=== PATIENT | female | born 1965 | race Caucasian/White ===

== ENCOUNTER 2016-10-26 04:38 | Emergency (ER) | payer MEDICAID ==
[2016-10-08 14:08] VITALS: BMI 39.9
[~2016-10-26 04:38] MED LIST: BUSPAR 15 MG TA15 MG PO; COLACE100 MG PO; ESTRACE1 MG PO; HYDROCODONE-APA1 TAB PO; LEVAQUIN750 MG PO; NORVASC5 MG PO; OMEPRAZOLE20 M1 PO; PROAIR HFA8.5 GM INH; RYTHMOL225 MG PO; SPIRIVA RESPIMAT4 G1 INH; TESSALON PERLE100 MG PO; THEOCHRON300 MG PO; TOPROL XL25 MG PO; TYLENOL W/CODEI1 TAB PO; XARELTO20 MG PO; ZESTRIL40 MG PO
== END 2016-10-26 05:50 | disposition home or self-care (01) ==
LOC: D.ER 04:38
DX: J44.1 Chronic obstructive pulmonary disease with (acute) exacerbation (principal); J45.909 Unspecified asthma, uncomplicated; F17.200 Nicotine dependence, unspecified, uncomplicated

== ENCOUNTER 2016-10-30 05:24 | Emergency (ER) | payer MEDICAID ==
[2016-10-08 14:08] VITALS: BMI 39.9
[2016-10-30 06:31] LABS: BASOPHILS 0.4 % (0.0-2.0); EOSINOPHILS 3.2 % (0-7); HEMATOCRIT 40.9 % (36.0-48.0); HEMOGLOBIN 13.5 g/dL (12-16); IMMATURE GRANULOCYTES 0.3 % (0-5); LYMPHOCYTES 35.8 % (15-50); MCH 29.5 pg (26.0-34.0); MCV 89.3 fL (80.0-100.0); MEAN PLATELET VOLUME 10.8 fL (7.4-10.4); MONOCYTES 7.6 % (2-11); NEUTROPHILS 52.7 % (40-80); PLATELET COUNT 219 10x3/uL (130-400); RBC 4.58 10x6/uL (4.00-5.40); RDW 13.5 % (11.5-14.5); WBC 7.4 10x3/uL (4.8-10.8)
[2016-10-30 07:06] LABS: ALBUMIN 2.9 g/dL (3.4-5.0); ALKALINE PHOSPHATASE 91 U/L (46-116); ALT (SGPT) 23 U/L (10-68); BILIRUBIN - TOTAL 0.28 mg/dL (0.2-1.3); CALC OSMOLALITY 279 mosm/kg (275-300); CALCIUM 9.4 mg/dL (8.5-10.1); CARBON DIOXIDE 30.4 mmol/L (21.0-32.0); CHLORIDE - SERUM 104 mmol/L (98-107); CREATININE - SERUM 0.9 mg/dL (0.6-1.3); POTASSIUM - SERUM 3.8 mmol/L (3.5-5.1); PROTEIN - SERUM 6.6 g/dL (6.4-8.2); SODIUM 140 mmol/L (136-145); UREA NITROGEN 15 mg/dL (7-18); eGFR NON AFRICAN AMERICAN 70 mL/min (90-120)
[2016-10-30 07:14] LABS: GLUCOSE 101 mg/dL (74-106)
[2016-10-30 07:27] LABS: AMYLASE - SERUM 36 U/L (25-115); LIPASE 127 U/L (73-393)
[2016-10-30 07:29] LABS: PRO BNP 1 pg/mL (0-125); TROPONIN-I < 0.017 ng/mL (0.000-0.060)
== END 2016-10-30 09:28 | disposition home or self-care (01) ==
LOC: D.ER 05:24
PROVIDERS: Family Medicine
DX: R06.00 Dyspnea, unspecified (principal); J44.1 Chronic obstructive pulmonary disease with (acute) exacerbation; M54.5 Low back pain; J45.909 Unspecified asthma, uncomplicated

== ENCOUNTER 2016-11-08 06:32 | Emergency (ER) | payer MEDICAID ==
[2016-10-08 14:08] VITALS: BMI 39.9
[2016-11-08 07:08] LABS: BASOPHILS 0.5 % (0.0-2.0); EOSINOPHILS 1.8 % (0-7); HEMATOCRIT 45.7 % (36.0-48.0); HEMOGLOBIN 15.4 g/dL (12-16); IMMATURE GRANULOCYTES 0.3 % (0-5); LYMPHOCYTES 38.3 % (15-50); MCH 30.1 pg (26.0-34.0); MCHC 33.7 g/dL (31.0-37.0); MCV 89.4 fL (80.0-100.0); MEAN PLATELET VOLUME 11.1 fL (7.4-10.4); MONOCYTES 8.5 % (2-11); NEUTROPHILS 50.6 % (40-80); PLATELET COUNT 205 10x3/uL (130-400); RBC 5.11 10x6/uL (4.00-5.40)
[2016-11-08 07:17] LABS: ALBUMIN 3.2 g/dL (3.4-5.0); ALKALINE PHOSPHATASE 117 U/L (46-116); ALT (SGPT) 22 U/L (10-68); BILIRUBIN - TOTAL 0.34 mg/dL (0.2-1.3); CALC OSMOLALITY 274 mosm/kg (275-300); CALCIUM 9.1 mg/dL (8.5-10.1); CARBON DIOXIDE 28.6 mmol/L (21.0-32.0); CHLORIDE - SERUM 101 mmol/L (98-107); CREATININE - SERUM 0.9 mg/dL (0.6-1.3); GLUCOSE 111 mg/dL (74-106); POTASSIUM - SERUM 4.1 mmol/L (3.5-5.1); PROTEIN - SERUM 7.3 g/dL (6.4-8.2); SODIUM 136 mmol/L (136-145); UREA NITROGEN 19 mg/dL (7-18); eGFR NON AFRICAN AMERICAN 70 mL/min (90-120)
[2016-11-08 07:29] LABS: CKMB 1.6 U/L (0.0-3.6); CREATINE KINASE 129 UL (21-215)
[2016-11-08 07:31] LABS: TROPONIN-I < 0.017 ng/mL (0.000-0.060)
== END 2016-11-08 08:35 | disposition home or self-care (01) ==
LOC: D.ER 06:32
PROVIDERS: Family Medicine
DX: R07.81 Pleurodynia (principal); F17.200 Nicotine dependence, unspecified, uncomplicated; M54.5 Low back pain; J45.909 Unspecified asthma, uncomplicated; J44.9 Chronic obstructive pulmonary disease, unspecified; I48.91 Unspecified atrial fibrillation

== ENCOUNTER 2016-11-14 04:24 | Emergency (ER) | payer MEDICAID ==
[2016-10-08 14:08] VITALS: BMI 39.9
== END 2016-11-14 05:28 | disposition home or self-care (01) ==
LOC: D.ER 04:24
DX: J20.9 Acute bronchitis, unspecified (principal); J44.1 Chronic obstructive pulmonary disease with (acute) exacerbation; J45.909 Unspecified asthma, uncomplicated; F17.200 Nicotine dependence, unspecified, uncomplicated

== ENCOUNTER 2016-11-22 05:23 | Emergency (ER) | payer MEDICAID ==
[2016-10-08 14:08] VITALS: BMI 39.9
== END 2016-11-22 06:54 | disposition home or self-care (01) ==
LOC: D.ER 05:23
DX: J44.1 Chronic obstructive pulmonary disease with (acute) exacerbation (principal); F17.200 Nicotine dependence, unspecified, uncomplicated; J45.909 Unspecified asthma, uncomplicated; R00.1 Bradycardia, unspecified

== ENCOUNTER 2016-11-22 17:26 | Emergency (ER) | payer MEDICAID ==
[2016-10-08 14:08] VITALS: BMI 39.9
== END 2016-11-22 19:18 | disposition home or self-care (01) ==
LOC: D.ER 17:26
DX: M25.551 Pain in right hip (principal); J44.9 Chronic obstructive pulmonary disease, unspecified; F17.200 Nicotine dependence, unspecified, uncomplicated

== ENCOUNTER 2016-11-27 16:46 | Emergency (ER) | payer MEDICAID ==
[2016-10-08 14:08] VITALS: BMI 39.9
[2016-11-27 17:14] LABS: BASOPHILS 0.4 % (0.0-2.0); EOSINOPHILS 2.4 % (0-7); HEMATOCRIT 42.3 % (36.0-48.0); HEMOGLOBIN 14.5 g/dL (12-16); IMMATURE GRANULOCYTES 0.5 % (0-5); LYMPHOCYTES 39.8 % (15-50); MCH 30.6 pg (26.0-34.0); MCHC 34.3 g/dL (31.0-37.0); MCV 89.2 fL (80.0-100.0); MEAN PLATELET VOLUME 10.3 fL (7.4-10.4); NEUTROPHILS 49.9 % (40-80); PLATELET COUNT 234 10x3/uL (130-400); RBC 4.74 10x6/uL (4.00-5.40); RDW 13.4 % (11.5-14.5); WBC 10.2 10x3/uL (4.8-10.8)
[2016-11-27 17:28] LABS: ALBUMIN 3.2 g/dL (3.4-5.0); ANION GAP 11.5 mmol/L (8-16); BILIRUBIN - TOTAL 0.25 mg/dL (0.2-1.3); CALCIUM 8.8 mg/dL (8.5-10.1); CARBON DIOXIDE 29.2 mmol/L (21.0-32.0); POTASSIUM - SERUM 3.7 mmol/L (3.5-5.1); PROTEIN - SERUM 7.1 g/dL (6.4-8.2)
[2016-11-27 18:12] LABS: APPEARANCE SLT CLOUDY (CLEAR); BACTERIA MODERATE /hpf (NONE SEEN); BILIRUBIN NEGATIVE (NEGATIVE); COLOR YELLOW (YELLOW); GLUCOSE NEGATIVE (NEGATIVE); KETONE NEGATIVE (NEGATIVE); LEUKOCYTE ESTERASE TRACE (NEGATIVE); MUCUS <1+ /lpf (NONE SEEN); NITRITE NEGATIVE (NEGATIVE); PROTEIN NEGATIVE (NEGATIVE); RED CELLS - URINE OCC /hpf (0-5); UROBILINOGEN NORMAL (NORMAL); WHITE CELLS - URINE 0-5 /hpf (0-5)
== END 2016-11-27 18:31 | disposition home or self-care (01) ==
LOC: D.ER 16:46
PROVIDERS: Emergency Medicine; Physician Assistant
DX: R10.31 Right lower quadrant pain (principal); J44.9 Chronic obstructive pulmonary disease, unspecified; F17.200 Nicotine dependence, unspecified, uncomplicated

== ENCOUNTER 2016-12-02 18:59 | Emergency (ER) | payer MEDICAID ==
[2016-10-08 14:08] VITALS: BMI 39.9
[2016-12-02 21:14] LABS: BASOPHILS 0.2 % (0.0-2.0); EOSINOPHILS 1.8 % (0-7); HEMOGLOBIN 14.4 g/dL (12-16); IMMATURE GRANULOCYTES 0.4 % (0-5); LYMPHOCYTES 35.1 % (15-50); MCH 30.4 pg (26.0-34.0); MCHC 34.3 g/dL (31.0-37.0); MCV 88.8 fL (80.0-100.0); MEAN PLATELET VOLUME 10.7 fL (7.4-10.4); MONOCYTES 7.1 % (2-11); NEUTROPHILS 55.4 % (40-80); PLATELET COUNT 215 10x3/uL (130-400); RBC 4.73 10x6/uL (4.00-5.40); RDW 13.7 % (11.5-14.5); WBC 10.6 10x3/uL (4.8-10.8)
[2016-12-02 21:27] LABS: ALBUMIN 3.4 g/dL (3.4-5.0); ANION GAP 11.9 mmol/L (8-16); BILIRUBIN - TOTAL 0.37 mg/dL (0.2-1.3); CARBON DIOXIDE 28.2 mmol/L (21.0-32.0); CREATININE - SERUM 1.4 mg/dL (0.6-1.3); POTASSIUM - SERUM 3.1 mmol/L (3.5-5.1); PROTEIN - SERUM 7.4 g/dL (6.4-8.2)
== END 2016-12-02 21:08 | disposition home or self-care (01) ==
LOC: D.ER 18:59
PROVIDERS: Physician Assistant
DX: J44.1 Chronic obstructive pulmonary disease with (acute) exacerbation (principal); S80.11XA Contusion of right lower leg, initial encounter; W01.0XXA Fall on same level from slipping, tripping and stumbling without subsequent striking against object, initial encounter; Y93.89 Activity, other specified; Y92.019 Unspecified place in single-family (private) house as the place of occurrence of the external cause; F17.200 Nicotine dependence, unspecified, uncomplicated

== ENCOUNTER 2016-12-16 05:17 | Emergency (ER) | payer MEDICAID ==
[2016-10-08 14:08] VITALS: BMI 39.9
== END 2016-12-16 05:50 | disposition home or self-care (01) ==
LOC: D.ER 05:17
DX: S39.012A Strain of muscle, fascia and tendon of lower back, initial encounter (principal); W01.0XXA Fall on same level from slipping, tripping and stumbling without subsequent striking against object, initial encounter; Y93.89 Activity, other specified; Y92.019 Unspecified place in single-family (private) house as the place of occurrence of the external cause; J44.9 Chronic obstructive pulmonary disease, unspecified

== ENCOUNTER 2016-12-22 15:36 | Emergency (ER) | payer MEDICAID ==
[2016-10-08 14:08] VITALS: BMI 39.9
== END 2016-12-22 20:21 | disposition home or self-care (01) ==
LOC: D.ER 15:36
DX: J44.1 Chronic obstructive pulmonary disease with (acute) exacerbation (principal); F17.200 Nicotine dependence, unspecified, uncomplicated

== ENCOUNTER 2016-12-28 10:52 | Emergency (ER) | payer MEDICAID ==
[2016-10-08 14:08] VITALS: BMI 39.9
== END 2016-12-28 11:56 | disposition home or self-care (01) ==
LOC: D.ER 10:52
DX: S39.012A Strain of muscle, fascia and tendon of lower back, initial encounter (principal); X58.XXXA Exposure to other specified factors, initial encounter; Y93.E5 Activity, floor mopping and cleaning; Y92.019 Unspecified place in single-family (private) house as the place of occurrence of the external cause; M54.5 Low back pain; J44.9 Chronic obstructive pulmonary disease, unspecified; F17.200 Nicotine dependence, unspecified, uncomplicated

== ENCOUNTER 2016-12-29 09:54 | Emergency (ER) | payer MEDICAID ==
[2016-10-08 14:08] VITALS: BMI 39.9
== END 2016-12-29 09:55 | disposition left against medical advice (07) ==
LOC: D.ER 09:54
DX: R22.9 Localized swelling, mass and lump, unspecified (principal)

== ENCOUNTER 2017-01-01 17:44 | Emergency (ER) | payer MEDICAID ==
[2016-10-08 14:08] VITALS: BMI 39.9
== END 2017-01-01 22:19 | disposition home or self-care (01) ==
LOC: D.ER 17:44
DX: J44.1 Chronic obstructive pulmonary disease with (acute) exacerbation (principal); F17.200 Nicotine dependence, unspecified, uncomplicated

== ENCOUNTER 2017-01-13 17:22 | Emergency (ER) | payer MEDICAID ==
[2016-10-08 14:08] VITALS: BMI 39.9
[2017-01-13 18:29] LABS: BASOPHILS 0.5 % (0.0-2.0); EOSINOPHILS 2.8 % (0-7); HEMATOCRIT 43.8 % (36.0-48.0); HEMOGLOBIN 14.5 g/dL (12-16); IMMATURE GRANULOCYTES 0.2 % (0-5); MCH 30.2 pg (26.0-34.0); MCHC 33.1 g/dL (31.0-37.0); MCV 91.3 fL (80.0-100.0); MEAN PLATELET VOLUME 10.5 fL (7.4-10.4); MONOCYTES 8.9 % (2-11); NEUTROPHILS 46.6 % (40-80); PLATELET COUNT 223 10x3/uL (130-400); RDW 13.7 % (11.5-14.5); WBC 6.3 10x3/uL (4.8-10.8)
[2017-01-13 18:44] LABS: ALBUMIN 3.5 g/dL (3.4-5.0); ALKALINE PHOSPHATASE 112 U/L (46-116); ALT (SGPT) 23 U/L (10-68); BILIRUBIN - TOTAL 0.18 mg/dL (0.2-1.3); CALC OSMOLALITY 278 mosm/kg (275-300); CALCIUM 9.2 mg/dL (8.5-10.1); CARBON DIOXIDE 26.7 mmol/L (21.0-32.0); CHLORIDE - SERUM 105 mmol/L (98-107); GLUCOSE 89 mg/dL (74-106); PROTEIN - SERUM 7.5 g/dL (6.4-8.2); SODIUM 140 mmol/L (136-145); UREA NITROGEN 15 mg/dL (7-18); eGFR NON AFRICAN AMERICAN 62 mL/min (90-120)
[2017-01-13 18:55] LABS: CKMB 2.9 U/L (0.0-3.6); CREATINE KINASE 313 UL (21-215); TROPONIN-I < 0.017 ng/mL (0.000-0.060)
== END 2017-01-13 21:45 | disposition home or self-care (01) ==
LOC: D.ER 17:22
PROVIDERS: Emergency Medicine
DX: J44.9 Chronic obstructive pulmonary disease, unspecified (principal); I10 Essential (primary) hypertension; J20.9 Acute bronchitis, unspecified; H66.93 Otitis media, unspecified, bilateral; J01.90 Acute sinusitis, unspecified

== ENCOUNTER 2017-02-01 19:12 | Emergency (ER) | payer MEDICAID ==
[2016-10-08 14:08] VITALS: BMI 39.9
[2017-02-01 19:59] LABS: BASOPHILS 0.4 % (0-2); EOSINOPHILS 1.4 % (0-7); HEMATOCRIT 42.9 % (36.0-48.0); HEMOGLOBIN 14.8 g/dL (12-16); IMMATURE GRANULOCYTES 0.1 % (0-5); LYMPHOCYTES 34.8 % (15-50); MCH 30.6 pg (26.0-34.0); MCHC 34.5 g/dL (31.0-37.0); MCV 88.8 fL (80.0-100.0); MONOCYTES 8.6 % (2-11); NEUTROPHILS 54.7 % (40-80); PLATELET COUNT 248 10x3/uL (130-400); RBC 4.83 10x6/uL (4.00-5.40); RDW 13.4 % (11.5-14.5)
[2017-02-01 20:16] LABS: ALBUMIN 3.5 g/dL (3.4-5.0); ALKALINE PHOSPHATASE 116 U/L (46-116); ALT (SGPT) 26 U/L (10-68); BILIRUBIN - TOTAL 0.28 mg/dL (0.2-1.3); CALC OSMOLALITY 280 mosm/kg (275-300); CALCIUM 9.7 mg/dL (8.5-10.1); CARBON DIOXIDE 27.6 mmol/L (21.0-32.0); CHLORIDE - SERUM 102 mmol/L (98-107); CREATININE - SERUM 1.1 mg/dL (0.6-1.3); GLUCOSE 107 mg/dL (74-106); POTASSIUM - SERUM 3.2 mmol/L (3.5-5.1); PROTEIN - SERUM 7.7 g/dL (6.4-8.2); SODIUM 140 mmol/L (136-145); UREA NITROGEN 18 mg/dL (7-18); eGFR NON AFRICAN AMERICAN 55 mL/min (90-120)
[2017-02-01 20:17] LABS: AMYLASE - SERUM 38 U/L (25-115); LIPASE 138 U/L (73-393)
[2017-02-01 20:18] LABS: TROPONIN-I < 0.017 ng/mL (0.000-0.060)
== END 2017-02-01 21:46 | disposition home or self-care (01) ==
LOC: D.ER 19:12
PROVIDERS: Emergency Medicine Emergency Medical Services
DX: R06.00 Dyspnea, unspecified (principal); J44.1 Chronic obstructive pulmonary disease with (acute) exacerbation; J20.9 Acute bronchitis, unspecified; I48.91 Unspecified atrial fibrillation; I50.9 Heart failure, unspecified; I10 Essential (primary) hypertension

== ENCOUNTER 2017-03-09 06:23 | Emergency (ER) | payer MEDICAID ==
[2016-10-08 14:08] VITALS: BMI 39.9
== END 2017-03-09 07:55 | disposition home or self-care (01) ==
LOC: D.ER 06:23
DX: R06.00 Dyspnea, unspecified (principal); J44.1 Chronic obstructive pulmonary disease with (acute) exacerbation; I50.9 Heart failure, unspecified; I10 Essential (primary) hypertension; F17.200 Nicotine dependence, unspecified, uncomplicated

== ENCOUNTER 2017-03-19 13:19 | Emergency (ER) | payer MEDICAID ==
[2016-10-08 14:08] VITALS: BMI 39.9
[2017-03-19 14:29] LABS: BASOPHILS 0.6 % (0-2); EOSINOPHILS 3.4 % (0-7); HEMATOCRIT 46.2 % (36.0-48.0); HEMOGLOBIN 15.3 g/dL (12-16); IMMATURE GRANULOCYTES 0.1 % (0-5); LYMPHOCYTES 39.9 % (15-50); MCH 30.7 pg (26.0-34.0); MCHC 33.1 g/dL (31.0-37.0); MCV 92.8 fL (80.0-100.0); MEAN PLATELET VOLUME 10.5 fL (7.4-10.4); MONOCYTES 7.3 % (2-11); NEUTROPHILS 48.7 % (40-80); PLATELET COUNT 244 10x3/uL (130-400); RBC 4.98 10x6/uL (4.00-5.40); RDW 13.4 % (11.5-14.5); WBC 7.7 10x3/uL (4.8-10.8)
[2017-03-19 14:44] LABS: ANION GAP 14.1 mmol/L (8-16); CALCIUM 9.1 mg/dL (8.5-10.1); POTASSIUM - SERUM 4.1 mmol/L (3.5-5.1)
== END 2017-03-19 15:13 | disposition home or self-care (01) ==
LOC: D.ER 13:19
PROVIDERS: Family Medicine
DX: R06.02 Shortness of breath (principal); J44.1 Chronic obstructive pulmonary disease with (acute) exacerbation

== ENCOUNTER 2017-04-18 19:55 | Emergency (ER) | payer MEDICAID ==
[2016-10-08 14:08] VITALS: BMI 39.9
[2017-04-18 20:40] LABS: BASOPHILS 0.6 % (0-2); EOSINOPHILS 1.6 % (0-7); HEMATOCRIT 44.4 % (36.0-48.0); HEMOGLOBIN 15.2 g/dL (12-16); IMMATURE GRANULOCYTES 0.1 % (0-5); LYMPHOCYTES 44.1 % (15-50); MCH 30.8 pg (26.0-34.0); MCHC 34.2 g/dL (31.0-37.0); MCV 90.1 fL (80.0-100.0); MEAN PLATELET VOLUME 10.3 fL (7.4-10.4); MONOCYTES 8.6 % (2-11); PLATELET COUNT 219 10x3/uL (130-400); RBC 4.93 10x6/uL (4.00-5.40); RDW 13.4 % (11.5-14.5); WBC 6.9 10x3/uL (4.8-10.8)
== END 2017-04-18 21:19 | disposition home or self-care (01) ==
LOC: D.ER 19:55
PROVIDERS: Emergency Medicine
DX: J44.1 Chronic obstructive pulmonary disease with (acute) exacerbation (principal); I50.9 Heart failure, unspecified; I10 Essential (primary) hypertension; F17.200 Nicotine dependence, unspecified, uncomplicated

== ENCOUNTER 2017-05-22 08:32 | Emergency (ER) | payer MEDICAID ==
[2016-10-08 14:08] VITALS: BMI 39.9
== END 2017-05-22 10:06 | disposition home or self-care (01) ==
LOC: D.ER 08:32
DX: R06.00 Dyspnea, unspecified (principal); J44.1 Chronic obstructive pulmonary disease with (acute) exacerbation; I50.9 Heart failure, unspecified; I10 Essential (primary) hypertension; F17.200 Nicotine dependence, unspecified, uncomplicated

== ENCOUNTER 2017-05-27 19:23 | Emergency (ER) | payer MEDICAID ==
[2016-10-08 14:08] VITALS: BMI 39.9
== END 2017-05-27 21:23 | disposition home or self-care (01) ==
LOC: D.ER 19:23
DX: S39.012A Strain of muscle, fascia and tendon of lower back, initial encounter (principal); W19.XXXA Unspecified fall, initial encounter; Y93.89 Activity, other specified; Y92.89 Other specified places as the place of occurrence of the external cause; J44.1 Chronic obstructive pulmonary disease with (acute) exacerbation; I50.9 Heart failure, unspecified; I10 Essential (primary) hypertension; F17.200 Nicotine dependence, unspecified, uncomplicated

== ENCOUNTER 2017-06-05 22:38 | Emergency (ER) | payer MEDICAID ==
[2016-10-08 14:08] VITALS: BMI 39.9
== END 2017-06-06 00:15 | disposition home or self-care (01) ==
LOC: D.ER 22:38
DX: S39.012A Strain of muscle, fascia and tendon of lower back, initial encounter (principal); Y04.2XXA Assault by strike against or bumped into by another person, initial encounter; Y93.89 Activity, other specified; Y92.019 Unspecified place in single-family (private) house as the place of occurrence of the external cause; M62.830 Muscle spasm of back; I50.9 Heart failure, unspecified; J44.9 Chronic obstructive pulmonary disease, unspecified; I10 Essential (primary) hypertension; F17.200 Nicotine dependence, unspecified, uncomplicated

== ENCOUNTER 2017-06-17 12:39 | Emergency (ER) | payer MEDICAID ==
[2016-10-08 14:08] VITALS: BMI 39.9
[2017-06-17 16:27] LABS: APPEARANCE HAZY (CLEAR); BILIRUBIN NEGATIVE (NEGATIVE); COLOR YELLOW (YELLOW); GLUCOSE NEGATIVE (NEGATIVE); KETONE NEGATIVE (NEGATIVE); LEUKOCYTE ESTERASE 2+ (NEGATIVE); NITRITE NEGATIVE (NEGATIVE); PROTEIN NEGATIVE (NEGATIVE); SPECIFIC GRAVITY 1.015 (1.005-1.020); UROBILINOGEN NORMAL (NORMAL)
[2017-06-17 16:28] LABS: BACTERIA MODERATE /hpf (NONE SEEN); RED CELLS - URINE 0-5 /hpf (0-5)
[2017-06-17 16:29] LABS: MUCUS <1+ /lpf (NONE SEEN)
== END 2017-06-17 18:00 | disposition home or self-care (01) ==
LOC: D.ER 12:39
PROVIDERS: Physician Assistant Medical
DX: N39.0 Urinary tract infection, site not specified (principal); A59.9 Trichomoniasis, unspecified; M54.5 Low back pain; J45.901 Unspecified asthma with (acute) exacerbation; F17.200 Nicotine dependence, unspecified, uncomplicated

== ENCOUNTER 2017-06-24 15:02 | Emergency (ER) | payer MEDICAID ==
[2016-10-08 14:08] VITALS: BMI 39.9
== END 2017-06-24 19:10 | disposition home or self-care (01) ==
LOC: D.ER 15:02
DX: M79.604 Pain in right leg (principal); W19.XXXA Unspecified fall, initial encounter; Y93.89 Activity, other specified; Y92.89 Other specified places as the place of occurrence of the external cause; J45.909 Unspecified asthma, uncomplicated; J44.9 Chronic obstructive pulmonary disease, unspecified; I10 Essential (primary) hypertension; F17.200 Nicotine dependence, unspecified, uncomplicated

== ENCOUNTER 2017-07-02 19:39 | Emergency (ER) | payer MEDICAID ==
[2016-10-08 14:08] VITALS: BMI 39.9
== END 2017-07-02 21:02 | disposition home or self-care (01) ==
LOC: D.ER 19:39
DX: T63.461A Toxic effect of venom of wasps, accidental (unintentional), initial encounter (principal); Y92.029 Unspecified place in mobile home as the place of occurrence of the external cause; M79.1 Myalgia; M25.50 Pain in unspecified joint; J44.9 Chronic obstructive pulmonary disease, unspecified; F17.200 Nicotine dependence, unspecified, uncomplicated

== ENCOUNTER 2017-07-06 19:03 | Emergency (ER) | payer MEDICAID ==
[2016-10-08 14:08] VITALS: BMI 39.9
[2017-07-06 20:09] LABS: BASOPHILS 0.4 % (0-2); EOSINOPHILS 2.3 % (0-7); HEMATOCRIT 41.3 % (36.0-48.0); IMMATURE GRANULOCYTES 0.5 % (0-5); MCH 30.8 pg (26.0-34.0); MCHC 33.9 g/dL (31.0-37.0); MCV 90.8 fL (80.0-100.0); MEAN PLATELET VOLUME 10.5 fL (7.4-10.4); MONOCYTES 6.8 % (2-11); PLATELET COUNT 210 10x3/uL (130-400); RBC 4.55 10x6/uL (4.00-5.40); RDW 13.4 % (11.5-14.5); WBC 7.8 10x3/uL (4.8-10.8)
[2017-07-06 20:17] LABS: ALBUMIN 3.1 g/dL (3.4-5.0); ALKALINE PHOSPHATASE 107 U/L (46-116); ALT (SGPT) 20 U/L (10-68); CALC OSMOLALITY 279 mosm/kg (275-300); CALCIUM 8.9 mg/dL (8.5-10.1); CHLORIDE - SERUM 104 mmol/L (98-107); CREATININE - SERUM 0.9 mg/dL (0.6-1.3); GLUCOSE 113 mg/dL (74-106); POTASSIUM - SERUM 3.3 mmol/L (3.5-5.1); PROTEIN - SERUM 6.8 g/dL (6.4-8.2); SODIUM 139 mmol/L (136-145); UREA NITROGEN 15 mg/dL (7-18); eGFR NON AFRICAN AMERICAN 70 mL/min (90-120)
[2017-07-06 20:21] LABS: APPEARANCE CLEAR (CLEAR); BILIRUBIN NEGATIVE (NEGATIVE); COLOR YELLOW (YELLOW); GLUCOSE NEGATIVE (NEGATIVE); KETONE NEGATIVE (NEGATIVE); LEUKOCYTE ESTERASE NEGATIVE (NEGATIVE); NITRITE NEGATIVE (NEGATIVE); PROTEIN NEGATIVE (NEGATIVE); SPECIFIC GRAVITY 1.015 (1.005-1.020); UROBILINOGEN NORMAL (NORMAL)
[2017-07-06 20:29] LABS: CKMB 0.7 U/L (0.0-3.6); CREATINE KINASE 70 UL (21-215); PRO BNP 161 pg/mL (0-125); TROPONIN-I < 0.017 ng/mL (0.000-0.060)
== END 2017-07-06 22:57 | disposition home or self-care (01) ==
LOC: D.ER 19:03
PROVIDERS: Family Medicine
DX: M54.9 Dorsalgia, unspecified (principal); R90.89 Other abnormal findings on diagnostic imaging of central nervous system; W13.3XXA Fall through floor, initial encounter; Y93.89 Activity, other specified; Y92.89 Other specified places as the place of occurrence of the external cause; F17.200 Nicotine dependence, unspecified, uncomplicated; J44.9 Chronic obstructive pulmonary disease, unspecified; I10 Essential (primary) hypertension

== ENCOUNTER 2017-07-20 02:25 | Emergency (ER) | payer MEDICAID ==
[2016-10-08 14:08] VITALS: BMI 39.9
== END 2017-07-20 03:46 | disposition home or self-care (01) ==
LOC: D.ER 02:25
DX: J44.1 Chronic obstructive pulmonary disease with (acute) exacerbation (principal); J20.9 Acute bronchitis, unspecified; I10 Essential (primary) hypertension; F17.200 Nicotine dependence, unspecified, uncomplicated

== ENCOUNTER 2017-07-30 09:25 | Emergency (ER) | payer MEDICAID ==
[2016-10-08 14:08] VITALS: BMI 39.9
== END 2017-07-30 10:30 | disposition home or self-care (01) ==
LOC: D.ER 09:25
DX: J20.9 Acute bronchitis, unspecified (principal); J44.1 Chronic obstructive pulmonary disease with (acute) exacerbation; M54.9 Dorsalgia, unspecified; I10 Essential (primary) hypertension; F17.200 Nicotine dependence, unspecified, uncomplicated

== ENCOUNTER 2017-07-31 01:04 | Emergency (ER) | payer MEDICAID ==
[2016-10-08 14:08] VITALS: BMI 39.9
== END 2017-07-31 02:25 | disposition home or self-care (01) ==
LOC: D.ER 01:04
DX: M54.2 Cervicalgia (principal); J44.9 Chronic obstructive pulmonary disease, unspecified; I10 Essential (primary) hypertension; F17.200 Nicotine dependence, unspecified, uncomplicated

== ENCOUNTER 2017-08-13 12:52 | Emergency (ER) | payer MEDICAID ==
[2016-10-08 14:08] VITALS: BMI 39.9
== END 2017-08-13 15:20 | disposition home or self-care (01) ==
LOC: D.ER 12:52
DX: M54.5 Low back pain (principal); M25.562 Pain in left knee; J44.9 Chronic obstructive pulmonary disease, unspecified; I10 Essential (primary) hypertension; F17.200 Nicotine dependence, unspecified, uncomplicated

== ENCOUNTER 2017-08-19 09:19 | Observation (INO) | payer MEDICAID ==
[~2017-08-19] VITALS: Ht 165.1 cm; Wt 93.4 kg
[2017-08-19 10:08] LABS: HEMATOCRIT 45.8 % (36.0-48.0); HEMOGLOBIN 15.4 g/dL (12-16); MCH 31.1 pg (26.0-34.0); MCHC 33.6 g/dL (31.0-37.0); MCV 92.5 fL (80.0-100.0); MEAN PLATELET VOLUME 10.3 fL (7.4-10.4); PLATELET COUNT 227 10x3/uL (130-400); RBC 4.95 10x6/uL (4.00-5.40); RDW 13.8 % (11.5-14.5); WBC 7.7 10x3/uL (4.8-10.8)
[2017-08-19 10:26] LABS: ALBUMIN 3.4 g/dL (3.4-5.0); ALKALINE PHOSPHATASE 87 U/L (46-116); ALT (SGPT) 28 U/L (10-68); CALC OSMOLALITY 275 mosm/kg (275-300); CALCIUM 9.4 mg/dL (8.5-10.1); CARBON DIOXIDE 28.6 mmol/L (21.0-32.0); CHLORIDE - SERUM 102 mmol/L (98-107); CREATININE - SERUM 0.8 mg/dL (0.6-1.3); GLUCOSE 95 mg/dL (74-106); POTASSIUM - SERUM 4.1 mmol/L (3.5-5.1); PROTEIN - SERUM 7.4 g/dL (6.4-8.2); SODIUM 138 mmol/L (136-145); UREA NITROGEN 13 mg/dL (7-18); eGFR NON AFRICAN AMERICAN 80 mL/min (90-120)
[2017-08-19 10:34] LABS: PRO BNP 169 pg/mL (0-125)
[2017-08-19 10:51] LABS: EOSINOPHILS 2 % (0-7); LYMPHOCYTES 55 % (15-50); MONOCYTES 6 % (2-11); NEUTROPHILS 35 % (40-80); PLATELET ESTIMATE NORMAL
--- NOTE | 2017-08-19 15:04 | NUR ---
PT ARRIVED TO ROOM VIA WHEELCHAIR. SOON PT ARRIVED IN THE ROOM SHE STATED THAT SHE CAN NOT STAY IN THE ROOM AND NEEDS TO GO FOR A WALK AND GET SOME HOT [place]. I OFFERED TO GET HER SOME HOT [place] ON THE FLOOR AND ASKED HER TO PLEASE STAY ON THE FLOOR. PT LEFT ROOM. ER CALLED AND STATED THAT PT JUST LEFT THE HOSPITAL AND WENT OUTSIDE. AWAITING FOR PT TO RETURN TO CHECK PT IN.
--- NOTE | 2017-08-19 15:30 | NUR ---
PT BACK IN ROOM AND NOW ON THE PHONE. WILL ADMIT SOON I CAN.
[2017-08-19 15:45] VITALS: BP 153/76; BMI 34.3
--- NOTE | 2017-08-19 17:27 | NUR ---
PT SITTING ON THE SIDE OF THE BED EATING DINNER. C/O HOW THE DINNER TASTE. STATES THAT SHE WANTS CATFISH, MASHED POTATOES, BUTTER KRAFT WITH CORN BREAD OR GREENS. WILL CALL DIETARY. WILL CONTINEU TO MONITOR
--- NOTE | 2017-08-19 17:47 | NUR ---
PT REFUSES 02. STATES IT MAKES HER BREATHING WORSE. PT LEFT FLOOR WITH MALE FRIEND. ADVISED PT TO NOT SMOKE WHILE RECIEVING THE NICOTINE PATCH. WILL CONTINUE TO MONITOR
--- NOTE | 2017-08-19 17:49 | NUR ---
UNABLE TO GIVE PT THEODUR, NOT IN PYXIS, PHARMACY NOTIFIED.
--- NOTE | 2017-08-19 18:16 | NUR ---
PT BACK IN ROM AT THIS TIME. WILL CONTINEUE TO MONITOR
--- NOTE | 2017-08-19 18:40 | NUR ---
PT C/O BACK PAIN 07/19. PT IS SITTING UP IN THE BED PLAYING A GAME ON HER PHONE AND TALKING WITH HER VISITOR. PAIN MEDS GIVEN ORDERED. WILL CONTINUE TO MONITOR
--- NOTE | 2017-08-19 19:37 | NUR ---
PT LEAVING FLOOR AT THIS TIME.
--- NOTE | 2017-08-19 19:53 | NUR ---
PT RETURNED TO THE FLOOR AT THIS TIME.
[2017-08-20] VITALS: BP 102/51
--- NOTE | 2017-08-20 07:16 | NUR ---
RECEIVED REPORT. ASSUMED CARE OF PATIENT. PATIENT AMBULATING AROUND UNIT WITH IV POLE. ALERT/ORIENTED. NO DISTRESS. DENIES NEEDS. STATES SHE IS SO MUCH BETTER THAN YESTERDAY. PATIENT INQUIRING ABOUT IF SHE IS GOING HOME TODAY.
--- NOTE | 2017-08-20 08:10 | NUR ---
PATIENT OFF UNIT, TAKING A WALK.
[2017-08-20 08:22] VITALS: BP 161/83
--- NOTE | 2017-08-20 09:49 | NUR ---
MEDICATED FOR PAIN AT THIS TIME. NO DISTRESS.
--- NOTE | 2017-08-20 09:54 | NUR ---
22 GAUGE IV REMOVED FROM LEFT WRIST DUE TO INFILTRATION. CATHETER TIP INTACT. NO BLEEDING FROM SITE. 2X2 GAUZE APPLIED AND SECURED WITH TAPE. NO DISTRESS. TOLERATED IV REMOVAL WELL.
[2017-08-20 10:27] VITALS: Ht 165.1 cm; Wt 93.4 kg
--- NOTE | 2017-08-20 11:04 | NUR ---
22 GAUGE IV PLACED TO LEFT LATERAL AC AREA X 1 STICK. GOOD BLOOD RETURN, EASY FLUSH. TAPED, DATED AND SECURED. TOLERATED IV PLACEMENT WELL. NO DISTRESS.
[2017-08-20 12:24] VITALS: BP 108/72
[2017-08-20] MEDS ORDERED: NEXIUM40 MG PO (13:45)
--- NOTE | 2017-08-20 13:54 | NUR ---
PAGED TO REQUEST NEXIUM OR EQUIVALENT AVAILABLE FOR INDIGESTION AND ALSO PATIENT IS REQUESTING TO LEAVE SHE HAS TOO MANY PERSONAL OBLIGATIONS OUTSIDE OF THE HOSPITAL TO BE HERE. PATIENT AMBULATING OFF UNIT AT THIS TIME. NO DISTRESS.
[2017-08-20] MEDS ORDERED: VIBRAMYCIN 100100 MG PO (15:23)
[2017-08-20] MEDS ORDERED: PROAIR HFA8.5 GM INH (15:24)
[2017-08-20] MEDS ORDERED: HYDROCODON-ACE1 EAC7 PO (15:25)
--- NOTE | 2017-08-20 16:47 | NUR ---
22 GAUGE REMOVED FROM LEFT LATERAL AC. CATHETER TIP INTACT. NO BLEEDING FROM SITE. 2X2 GAUZE APPLIED AND SECURED WITH TAPE. NO DISTRESS. TOLERATED IV REMOVAL WELL PATIENT IS DISCHARGING TO HOME.
--- NOTE | 2017-08-20 17:01 | NUR ---
DISCHARGE INSTRUCTIONS PROVIDED TO PATIENT. VERBALIZED UNDERSTANDING OF ALL INSTRUCTIONS PROVIDED. HARD SCRIPTS PROVIDED FOR NORCO AND DOXYCYCLINE. PATIENT EATING PM MEAL BEFORE LEAVING UNIT.
--- NOTE | 2017-08-20 17:15 | NUR ---
PATIENT AMBULATED OFF UNIT PER HER CHOICE SHE HAS BEEN MOST OF THIS SHIFT. PATIENT LEFT UNIT IN NO DISTRESS. DISCHARGED TO HOME.
== END 2017-08-20 17:15 | disposition home or self-care (01) ==
LOC: D.ER 09:19 → D.M2 13:33 → D.SDCHOLD 13:33 → OBSVTIME 13:33 → D.M2 14:15
PROVIDERS: Emergency Medicine; ADMIT Family Medicine
DX: J44.1 Chronic obstructive pulmonary disease with (acute) exacerbation (principal); I10 Essential (primary) hypertension; F41.8 Other specified anxiety disorders; I48.2 Chronic atrial fibrillation; G47.30 Sleep apnea, unspecified; F12.10 Cannabis abuse, uncomplicated; Z72.0 Tobacco use; M54.5 Low back pain

== ENCOUNTER 2017-09-11 06:27 | Emergency (ER) | payer MEDICAID ==
[2017-08-20 10:27] VITALS: BMI 34.2
[~2017-09-11 06:27] MED LIST changes: +HYDROCODON-ACE1 EAC7 PO; +NEXIUM40 MG PO; +VIBRAMYCIN 100100 MG PO
== END 2017-09-11 07:22 | disposition home or self-care (01) ==
LOC: D.ER 06:27
DX: J44.1 Chronic obstructive pulmonary disease with (acute) exacerbation (principal); M19.90 Unspecified osteoarthritis, unspecified site; I10 Essential (primary) hypertension; F17.200 Nicotine dependence, unspecified, uncomplicated

== ENCOUNTER 2017-09-23 17:34 | Emergency (ER) | payer MEDICAID ==
[2017-08-20 10:27] VITALS: BMI 34.2
== END 2017-09-23 18:49 | disposition home or self-care (01) ==
LOC: D.ER 17:34
DX: J20.9 Acute bronchitis, unspecified (principal); J06.9 Acute upper respiratory infection, unspecified; I50.9 Heart failure, unspecified; J44.9 Chronic obstructive pulmonary disease, unspecified; F17.200 Nicotine dependence, unspecified, uncomplicated

== ENCOUNTER 2017-10-07 05:07 | Emergency (ER) | payer MEDICAID ==
[2017-08-20 10:27] VITALS: BMI 34.2
== END 2017-10-07 06:42 | disposition home or self-care (01) ==
LOC: D.ER 05:07
DX: J44.1 Chronic obstructive pulmonary disease with (acute) exacerbation (principal); J20.9 Acute bronchitis, unspecified; F17.200 Nicotine dependence, unspecified, uncomplicated; I50.9 Heart failure, unspecified; I10 Essential (primary) hypertension

== ENCOUNTER 2017-11-01 11:25 | Emergency (ER) | payer MEDICAID ==
[2017-08-20 10:27] VITALS: BMI 34.2
== END 2017-11-01 12:29 | disposition home or self-care (01) ==
LOC: D.ER 11:25
DX: M79.642 Pain in left hand (principal); M79.641 Pain in right hand; M25.562 Pain in left knee; M17.12 Unilateral primary osteoarthritis, left knee; F17.200 Nicotine dependence, unspecified, uncomplicated

== ENCOUNTER 2017-11-07 11:42 | Emergency (ER) | payer MEDICAID ==
[2017-08-20 10:27] VITALS: BMI 34.2
[2017-11-07 12:58] LABS: BASOPHILS 0.6 % (0-2); EOSINOPHILS 1.7 % (0-7); HEMATOCRIT 44.1 % (36.0-48.0); HEMOGLOBIN 15.1 g/dL (12-16); IMMATURE GRANULOCYTES 0.4 % (0-5); LYMPHOCYTES 26.1 % (15-50); MCH 30.9 pg (26.0-34.0); MCHC 34.2 g/dL (31.0-37.0); MCV 90.2 fL (80.0-100.0); MEAN PLATELET VOLUME 10.3 fL (7.4-10.4); MONOCYTES 14.6 % (2-11); NEUTROPHILS 56.6 % (40-80); RBC 4.89 10x6/uL (4.00-5.40); RDW 13.1 % (11.5-14.5); WBC 5.3 10x3/uL (4.8-10.8)
[2017-11-07 13:01] LABS: PLATELET COUNT 165 10x3/uL (130-400)
[2017-11-07 13:20] LABS: ALBUMIN 3.4 g/dL (3.4-5.0); ALKALINE PHOSPHATASE 110 U/L (46-116); ALT (SGPT) 28 U/L (10-68); CALC OSMOLALITY 278 mosm/kg (275-300); CARBON DIOXIDE 30.8 mmol/L (21.0-32.0); CHLORIDE - SERUM 100 mmol/L (98-107); CREATININE - SERUM 0.9 mg/dL (0.6-1.3); GLUCOSE 99 mg/dL (74-106); POTASSIUM - SERUM 3.4 mmol/L (3.5-5.1); PROTEIN - SERUM 7.4 g/dL (6.4-8.2); SODIUM 140 mmol/L (136-145); UREA NITROGEN 12 mg/dL (7-18); eGFR NON AFRICAN AMERICAN 70 mL/min (90-120)
[2017-11-07 13:34] LABS: CKMB 1.8 U/L (0.0-3.6); CREATINE KINASE 111 UL (21-215); PRO BNP 96 pg/mL (0-125)
[2017-11-07 13:50] LABS: TROPONIN-I < 0.017 ng/mL (0.000-0.060)
== END 2017-11-07 15:20 | disposition home or self-care (01) ==
LOC: D.ER 11:42
PROVIDERS: Family Medicine
DX: J44.1 Chronic obstructive pulmonary disease with (acute) exacerbation (principal); J20.9 Acute bronchitis, unspecified; I10 Essential (primary) hypertension; F17.200 Nicotine dependence, unspecified, uncomplicated

== ENCOUNTER 2017-12-10 03:04 | Emergency (ER) | payer MEDICAID ==
[2017-08-20 10:27] VITALS: BMI 34.2
[2017-12-10 03:43] LABS: HEMATOCRIT 40.6 % (36.0-48.0); HEMOGLOBIN 13.5 g/dL (12-16); IMMATURE GRANULOCYTES 0.1 % (0-5); MCH 30.4 pg (26.0-34.0); MCHC 33.3 g/dL (31.0-37.0); MCV 91.4 fL (80.0-100.0); MEAN PLATELET VOLUME 10.2 fL (7.4-10.4); MONOCYTES 8.8 % (2-11); NEUTROPHILS 43.1 % (40-80); PLATELET COUNT 205 10x3/uL (130-400); RBC 4.44 10x6/uL (4.00-5.40); RDW 13.1 % (11.5-14.5)
[2017-12-10 03:57] LABS: ANION GAP 11.2 mmol/L (8-16); BILIRUBIN - TOTAL 0.22 mg/dL (0.2-1.3); CALCIUM 9.1 mg/dL (8.5-10.1); CARBON DIOXIDE 26.6 mmol/L (21.0-32.0); CREATININE - SERUM 0.9 mg/dL (0.6-1.3); POTASSIUM - SERUM 3.8 mmol/L (3.5-5.1); PROTEIN - SERUM 6.9 g/dL (6.4-8.2)
== END 2017-12-10 06:10 | disposition home or self-care (01) ==
LOC: D.ER 03:04
PROVIDERS: Emergency Medicine
DX: R60.0 Localized edema (principal); M79.604 Pain in right leg; M79.605 Pain in left leg; J45.909 Unspecified asthma, uncomplicated; I50.9 Heart failure, unspecified; J44.9 Chronic obstructive pulmonary disease, unspecified; I10 Essential (primary) hypertension; F17.200 Nicotine dependence, unspecified, uncomplicated; R00.1 Bradycardia, unspecified

== ENCOUNTER 2018-01-03 05:51 | Emergency (ER) | payer MEDICAID ==
[2017-08-20 10:27] VITALS: BMI 34.2
[2018-01-03 06:44] LABS: BASOPHILS 0.9 % (0-2); EOSINOPHILS 3.2 % (0-7); HEMATOCRIT 42.7 % (36.0-48.0); HEMOGLOBIN 14.7 g/dL (12-16); IMMATURE GRANULOCYTES 0.4 % (0-5); MCH 30.6 pg (26.0-34.0); MCHC 34.4 g/dL (31.0-37.0); MCV 88.8 fL (80.0-100.0); MONOCYTES 7.6 % (2-11); NEUTROPHILS 41.9 % (40-80); PLATELET COUNT 202 10x3/uL (130-400); RBC 4.81 10x6/uL (4.00-5.40); RDW 13.1 % (11.5-14.5); WBC 5.4 10x3/uL (4.8-10.8)
[2018-01-03 07:01] LABS: ALBUMIN 3.3 g/dL (3.4-5.0); ALKALINE PHOSPHATASE 99 U/L (46-116); ALT (SGPT) 26 U/L (10-68); CALC OSMOLALITY 282 mosm/kg (275-300); CARBON DIOXIDE 29.1 mmol/L (21.0-32.0); CHLORIDE - SERUM 104 mmol/L (98-107); CREATININE - SERUM 0.8 mg/dL (0.6-1.3); GLUCOSE 104 mg/dL (74-106); POTASSIUM - SERUM 3.4 mmol/L (3.5-5.1); PROTEIN - SERUM 7.4 g/dL (6.4-8.2); SODIUM 141 mmol/L (136-145); UREA NITROGEN 19 mg/dL (7-18); eGFR NON AFRICAN AMERICAN 80 mL/min (90-120)
[2018-01-03 07:12] LABS: CKMB 1.7 U/L (0.0-3.6); CREATINE KINASE 132 UL (21-215); PRO BNP 84 pg/mL (0-125); TROPONIN-I < 0.017 ng/mL (0.000-0.060)
[2018-01-03 07:15] LABS: APTT 36.7 SECONDS (22.8-39.4); INR 1.02 (0.85-1.17)
[2018-01-03 07:16] LABS: D-DIMER-QUANTITATIVE < 0.27 ug/mLFEU (0.20-0.54)
== END 2018-01-03 07:54 | disposition home or self-care (01) ==
LOC: D.ER 05:51
PROVIDERS: Family Medicine
DX: J20.9 Acute bronchitis, unspecified (principal); J44.1 Chronic obstructive pulmonary disease with (acute) exacerbation; F17.200 Nicotine dependence, unspecified, uncomplicated

== ENCOUNTER 2018-02-05 04:57 | Emergency (ER) | payer MEDICAID ==
[2017-08-20 10:27] VITALS: BMI 34.2
[2018-02-05 05:27] LABS: BASOPHILS 0.6 % (0-2); EOSINOPHILS 2.4 % (0-7); HEMATOCRIT 42.8 % (36.0-48.0); HEMOGLOBIN 14.3 g/dL (12-16); IMMATURE GRANULOCYTES 0.4 % (0-5); LYMPHOCYTES 44.8 % (15-50); MCH 30.1 pg (26.0-34.0); MCHC 33.4 g/dL (31.0-37.0); MCV 90.1 fL (80.0-100.0); MEAN PLATELET VOLUME 10.3 fL (7.4-10.4); MONOCYTES 8.7 % (2-11); NEUTROPHILS 43.1 % (40-80); PLATELET COUNT 213 10x3/uL (130-400); RBC 4.75 10x6/uL (4.00-5.40); RDW 12.9 % (11.5-14.5); WBC 7.1 10x3/uL (4.8-10.8)
[2018-02-05 05:39] LABS: ALBUMIN 3.1 g/dL (3.4-5.0); ALKALINE PHOSPHATASE 108 U/L (46-116); ALT (SGPT) 17 U/L (10-68); CALC OSMOLALITY 284 mosm/kg (275-300); CALCIUM 8.8 mg/dL (8.5-10.1); CHLORIDE - SERUM 104 mmol/L (98-107); GLUCOSE 105 mg/dL (74-106); POTASSIUM - SERUM 3.4 mmol/L (3.5-5.1); PROTEIN - SERUM 7.4 g/dL (6.4-8.2); SODIUM 142 mmol/L (136-145); UREA NITROGEN 18 mg/dL (7-18); eGFR NON AFRICAN AMERICAN 62 mL/min (90-120)
[2018-02-05 05:48] LABS: PRO BNP 56 pg/mL (0-125); THEOPHYLLINE 7.5 ug/mL (10.0-20.0); TROPONIN-I < 0.017 ng/mL (0.000-0.060)
== END 2018-02-05 06:29 | disposition home or self-care (01) ==
LOC: D.ER 04:57
PROVIDERS: Family Medicine
DX: J44.1 Chronic obstructive pulmonary disease with (acute) exacerbation (principal); S39.012A Strain of muscle, fascia and tendon of lower back, initial encounter; X58.XXXA Exposure to other specified factors, initial encounter; Y93.89 Activity, other specified; Y92.019 Unspecified place in single-family (private) house as the place of occurrence of the external cause; R00.0 Tachycardia, unspecified

== ENCOUNTER 2018-02-06 02:59 | Emergency (ER) | payer MEDICAID ==
[2017-08-20 10:27] VITALS: BMI 34.2
[2018-02-06 04:00] LABS: BASOPHILS 0.1 % (0-2); EOSINOPHILS 0.3 % (0-7); HEMOGLOBIN 13.8 g/dL (12-16); IMMATURE GRANULOCYTES 0.3 % (0-5); MCH 30.3 pg (26.0-34.0); MCHC 33.7 g/dL (31.0-37.0); MCV 90.1 fL (80.0-100.0); MEAN PLATELET VOLUME 10.2 fL (7.4-10.4); NEUTROPHILS 65.3 % (40-80); PLATELET COUNT 205 10x3/uL (130-400); RBC 4.55 10x6/uL (4.00-5.40); RDW 13.1 % (11.5-14.5)
[2018-02-06 04:03] LABS: WBC 10.3 10x3/uL (4.8-10.8)
[2018-02-06 04:22] LABS: ANION GAP 14.9 mmol/L (8-16); BILIRUBIN - TOTAL 0.15 mg/dL (0.2-1.3); CALCIUM 9.2 mg/dL (8.5-10.1); CARBON DIOXIDE 25.5 mmol/L (21.0-32.0); CREATININE - SERUM 0.9 mg/dL (0.6-1.3); POTASSIUM - SERUM 3.4 mmol/L (3.5-5.1); PROTEIN - SERUM 7.1 g/dL (6.4-8.2)
== END 2018-02-06 05:16 | disposition home or self-care (01) ==
LOC: D.ER 02:59
PROVIDERS: Family Medicine
DX: S16.1XXA Strain of muscle, fascia and tendon at neck level, initial encounter (principal); X58.XXXA Exposure to other specified factors, initial encounter; Y93.89 Activity, other specified; Y92.017 Garden or yard in single-family (private) house as the place of occurrence of the external cause; M19.90 Unspecified osteoarthritis, unspecified site; J44.1 Chronic obstructive pulmonary disease with (acute) exacerbation; F17.200 Nicotine dependence, unspecified, uncomplicated

== ENCOUNTER 2018-03-06 07:27 | Emergency (ER) | payer MEDICAID ==
[2017-08-20 10:27] VITALS: BMI 34.2
== END 2018-03-06 08:48 | disposition home or self-care (01) ==
LOC: D.ER 07:27
DX: J45.901 Unspecified asthma with (acute) exacerbation (principal); S80.12XA Contusion of left lower leg, initial encounter; W19.XXXA Unspecified fall, initial encounter; Y93.9 Activity, unspecified; Y92.9 Unspecified place or not applicable; F17.200 Nicotine dependence, unspecified, uncomplicated; J44.9 Chronic obstructive pulmonary disease, unspecified

== ENCOUNTER 2018-07-18 05:03 | Emergency (ER) | payer MEDICAID ==
[~2018-07-18] VITALS: Ht 165.1 cm; Wt 77.3 kg
[2018-07-18 05:06] VITALS: Ht 165.1 cm; Wt 77.3 kg
[2018-07-18 05:43] LABS: BASOPHILS 0.5 % (0-2); EOSINOPHILS 2.3 % (0-7); HEMATOCRIT 41.5 % (36.0-48.0); HEMOGLOBIN 13.9 g/dL (12-16); IMMATURE GRANULOCYTES 0.3 % (0-5); LYMPHOCYTES 40.7 % (15-50); MCH 30.4 pg (26.0-34.0); MCHC 33.5 g/dL (31.0-37.0); MCV 90.8 fL (80.0-100.0); MEAN PLATELET VOLUME 10.8 fL (7.4-10.4); MONOCYTES 9.6 % (2-11); NEUTROPHILS 46.6 % (40-80); PLATELET COUNT 213 10x3/uL (130-400); RBC 4.57 10x6/uL (4.00-5.40); RDW 13.8 % (11.5-14.5); WBC 7.5 10x3/uL (4.8-10.8)
[2018-07-18 06:10] LABS: ALBUMIN 2.9 g/dL (3.4-5.0); ALKALINE PHOSPHATASE 108 U/L (46-116); ALT (SGPT) 31 U/L (10-68); BILIRUBIN - TOTAL 0.26 mg/dL (0.2-1.3); CALC OSMOLALITY 283 mosm/kg (275-300); CALCIUM 8.8 mg/dL (8.5-10.1); CARBON DIOXIDE 25.9 mmol/L (21.0-32.0); CHLORIDE - SERUM 107 mmol/L (98-107); CREATININE - SERUM 0.8 mg/dL (0.6-1.3); GLUCOSE 122 mg/dL (74-106); POTASSIUM - SERUM 3.6 mmol/L (3.5-5.1); SODIUM 141 mmol/L (136-145); UREA NITROGEN 18 mg/dL (7-18); eGFR NON AFRICAN AMERICAN 80 mL/min (90-120)
[2018-07-18 06:18] LABS: PRO BNP 124 pg/mL (0-125)
[2018-07-18 06:19] LABS: TROPONIN-I < 0.017 ng/mL (0.000-0.060)
[2018-07-18] MEDS ORDERED: ZITHROMAX TRI-500 MG PO (06:35)
[2018-07-18 06:44] VITALS: BP 132/85
== END 2018-07-18 06:44 | disposition home or self-care (01) ==
LOC: D.ER 05:03
PROVIDERS: Family Medicine
DX: J44.9 Chronic obstructive pulmonary disease, unspecified (principal); I10 Essential (primary) hypertension; F17.200 Nicotine dependence, unspecified, uncomplicated

== ENCOUNTER 2018-07-26 06:53 | Inpatient (IN) | payer MEDICAID ==
[~2018-07-26] VITALS: Ht 165.1 cm; Wt 100.0 kg
--- NOTE | ~2018-07-26 | MORECARE ---
CASE MANAGEMENT DISCHARGE SUMMARY PATIENT: BIBI HEBERT UNIT: [id number] ADM DATE: 07/26/18 AGE: 52 : 65 SEX: F ROOM/BED: D.2106 AUTHOR: TREVOR THOMAS PHYSICIAN: REFERRING PHYSICIAN: SUKHI LOPEZ MD DATE OF SERVICE: 07/31/18 Discharge Plan Patient Name: [facility]IB[facility]ERT [facility] [facility] 1965 Planned Disposition: Home Anticipated Discharge Date: 07/30/18 Discharge Date: 07/30/2018 Expected LOS: 4 Initial Reviewer: [email or web address] Initial Review Date: 07/31/2018 Generated: 07/31/18 9:33 am Patient Name: BIBI HEBERT Page 05246 at 0833 All edits/amendments must be made on the electronic document DICTATION DATE: 07/31/18831 SINGLE STROKE PREFORMER: HERMAN 07/31/18831 RPT#: [id number] DC DATE:07/30/18 STATUS: DIS IN [facility] [address] [place] [address] END OF REPORT
--- NOTE | ~2018-07-26 | MORECARE ---
CASE MANAGEMENT DISCHARGE SUMMARY PATIENT: BIBI HEBERT UNIT: [id number] ADM DATE: 07/26/18 AGE: 52 : 65 SEX: F ROOM/BED: D.2103 AUTHOR: TREVOR THOMAS PHYSICIAN: REFERRING PHYSICIAN: SUKHI LOPEZ MD DATE OF SERVICE: 07/31/18 Discharge Plan Patient Name: [facility]IB[facility] HEBERT [facility] [facility] 1965 Planned Disposition: Home Anticipated Discharge Date: 07/30/18 Discharge Date: 07/30/2018 Expected LOS: 4 Initial Reviewer: [email or web address] Initial Review Date: 07/31/2018 Generated: 07/31/18 9:40 am Patient Name: BIBI HEBERT Page 05178 at 0840 All edits/amendments must be made on the electronic document DICTATION DATE: 07/31/18 0839 DOUGHNUT GLAZIER: HERMAN 07/31/18 0839 RPT#: [id number] DC DATE:07/30/18 STATUS: DIS IN [facility] [address] [place] [address] END OF REPORT
--- NOTE | ~2018-07-26 | CN ---
PATIENT NAME:BIBI MYERS MEDICAL RECORD: [id number] : 65 LOCATION:D. D.2102 ADMIT DATE: 07/26/18 ACCOUNT: [id number] CONSULTING PHYSICIAN: AYESHA GONZALES MD REFERRING PHYSICIAN: SUKHI LOPEZ MD DATE OF CONSULTATION: 07/29/2018 CONSULT REQUESTING PHYSICIAN: Sukhi Lopez MD REASON FOR CONSULTATION: Acute exacerbation of chronic obstructive pulmonary disease. HISTORY OF PRESENT ILLNESS: Ms. Myers is a 52-year-old female who is still current every day smoker and also using marijuana. The patient has worsening shortness of breath for the last couple of weeks. She is wheezing. She is coughing. She has shortness of breath. She has taken a course of antibiotic, some cough syrup without much benefit. REVIEW OF SYSTEMS: As in history of present illness. PAST MEDICAL HISTORY: 1. COPD. 2. Asthma-COPD overlap syndrome. 3. Hypertension. 4. Coronary artery disease. PAST SURGICAL HISTORY: 1. Cholecystectomy. 2. Hysterectomy. 3. Bladder sling and mesh placement. 4. Mesh rectal repair. ALLERGIES: SHE IS ALLERGIC TO SULFA, MORPHINE, TORADOL, AND ASPIRIN. MEDICATIONS: On [employer] is reviewed. PERSONAL AND SOCIAL HISTORY: The patient is still current every day smoker. She is also abusing recreational drug, marijuana. FAMILY HISTORY: Noncontributory. PHYSICAL EXAMINATION: GENERAL: Now, the patient is lying comfortably in bed. She is not in acute distress. VITAL SIGNS: The blood pressure is 160/76, pulse is 68, respiration 20, temperature 97.8, SpO2 is 98% on room air. HEENT: Conjunctivae are pink. Sclerae are not icteric. NECK: The neck is supple, no JVD. CHEST: The chest excursion is minimal on both sides. Wheezes on forceful expiration. HEART: Rhythm regular, normal sound, no murmur. ABDOMEN: The abdomen is soft, bowel sounds present. No hepatosplenomegaly. RECTAL: Deferred. EXTREMITIES: No cyanosis, no clubbing, no pedal edema. SKIN: The skin is warm, normal turgor. CONSULT REPORT [id number] BIBI MYERS CENTRAL NERVOUS SYSTEM: The patient is awake and alert. There is no obvious cranial nerve abnormality. The gait was not tested. CHEST RADIOGRAPH: There is no acute infiltrate. LABORATORY DATA: CBC: WBC 17.8, hemoglobin 14.2, hematocrit 43.4, the platelet count 246. IMPRESSION: 1. Acute exacerbation of chronic obstructive pulmonary disease. 2. Tracheobronchitis. 3. Leukocytosis, most likely secondary to steroid. 4. COPD-asthma overlap syndrome. 5. Tobacco dependence syndrome. 6. Dyspnea. 7. Persistent wheezing. 8. Atrial fibrillation. 9. Gastroesophageal reflux disease. RECOMMENDATION: 1. Decrease the dose of methylprednisolone. 2. Start her on empiric antibiotic. 3. Albuterol, ipratropium nebulizer. 4. Brovana, budesonide nebulizer. 5. Start her on Singulair. 6. The patient was counseled to quit smoking. 7. GERD precaution given. Dr. Lopez, thank you for involving me in the care of Ms. Myers. TRANSINT:[id number] Voice Confirmation ID: [id number] DOCUMENT ID: [id number] AYESHA GONZALES MD CC: [id number] DICTATION DATE: 07/29/181746 LOGISTICS SPECIALIST: 07/30/18 0700 ADM IN [facility] [address] [id number]
[~2018-07-26 06:53] MED LIST changes: +ZITHROMAX TRI-500 MG PO
[2018-07-26 07:44] LABS: BASOPHILS 0.8 % (0-2); EOSINOPHILS 3.2 % (0-7); HEMATOCRIT 45.5 % (36.0-48.0); HEMOGLOBIN 15.4 g/dL (12-16); IMMATURE GRANULOCYTES 0.3 % (0-5); LYMPHOCYTES 41.3 % (15-50); MCHC 33.8 g/dL (31.0-37.0); MCV 91.5 fL (80.0-100.0); MEAN PLATELET VOLUME 10.2 fL (7.4-10.4); MONOCYTES 7.4 % (2-11); PLATELET COUNT 249 10x3/uL (130-400); RBC 4.97 10x6/uL (4.00-5.40); RDW 13.9 % (11.5-14.5); WBC 7.2 10x3/uL (4.8-10.8)
[2018-07-26 07:53] LABS: APTT 39.5 SECONDS (22.8-39.4); INR 1.29 (0.85-1.17); PROTIME 15.7 SECONDS (11.6-15.0)
[2018-07-26 07:56] LABS: ALBUMIN 3.2 g/dL (3.4-5.0); ALKALINE PHOSPHATASE 122 U/L (46-116); ALT (SGPT) 36 U/L (10-68); CALC OSMOLALITY 276 mosm/kg (275-300); CHLORIDE - SERUM 103 mmol/L (98-107); CREATININE - SERUM 0.9 mg/dL (0.6-1.3); GLUCOSE 107 mg/dL (74-106); POTASSIUM - SERUM 4.2 mmol/L (3.5-5.1); PROTEIN - SERUM 7.8 g/dL (6.4-8.2); SODIUM 139 mmol/L (136-145); UREA NITROGEN 11 mg/dL (7-18); eGFR NON AFRICAN AMERICAN 70 mL/min (90-120)
[2018-07-26 08:07] LABS: CKMB 1.9 U/L (0.0-3.6); CREATINE KINASE 122 UL (21-215); PRO BNP 70 pg/mL (0-125)
[2018-07-26 08:09] LABS: TROPONIN-I < 0.017 ng/mL (0.000-0.060)
[2018-07-26 10:22] VITALS: BP 102/55; BMI 36.6
[2018-07-26] MEDS ORDERED: LISINOPRIL-HCTZ 20-2 PO (10:56)
[2018-07-26 11:55] VITALS: BP 102/53
[2018-07-26 21:31] VITALS: BP 122/61
[2018-07-27 01:11] VITALS: BP 138/73
[2018-07-27 05:55] LABS: BASOPHILS 0.1 % (0-2); EOSINOPHILS 0 % (0-7); HEMATOCRIT 41.9 % (36.0-48.0); HEMOGLOBIN 14.1 g/dL (12-16); IMMATURE GRANULOCYTES 0.3 % (0-5); LYMPHOCYTES 11.2 % (15-50); MCH 30.7 pg (26.0-34.0); MCHC 33.7 g/dL (31.0-37.0); MCV 91.3 fL (80.0-100.0); MEAN PLATELET VOLUME 10.9 fL (7.4-10.4); MONOCYTES 1.5 % (2-11); NEUTROPHILS 86.9 % (40-80); PLATELET COUNT 229 10x3/uL (130-400); RBC 4.59 10x6/uL (4.00-5.40)
[2018-07-27 05:58] LABS: WBC 13.6 10x3/uL (4.8-10.8)
[2018-07-27 06:07] LABS: ALBUMIN 3.1 g/dL (3.4-5.0); ANION GAP 14.5 mmol/L (8-16); BILIRUBIN - TOTAL 0.19 mg/dL (0.2-1.3); CALCIUM 8.8 mg/dL (8.5-10.1); CARBON DIOXIDE 24.3 mmol/L (21.0-32.0); CREATININE - SERUM 1.1 mg/dL (0.6-1.3); POTASSIUM - SERUM 3.8 mmol/L (3.5-5.1); PROTEIN - SERUM 7.5 g/dL (6.4-8.2); THEOPHYLLINE 5.3 ug/mL (10.0-20.0)
[2018-07-27 07:25] VITALS: BP 153/74
[2018-07-27 09:24] VITALS: BP 144/74
[2018-07-27 12:10] VITALS: Ht 165.1 cm; Wt 100.0 kg
[2018-07-27 12:20] VITALS: BP 132/77
[2018-07-27 15:46] VITALS: BP 110/61
[2018-07-27 22:02] VITALS: BP 139/81
[2018-07-28 01:00] VITALS: BP 130/76
[2018-07-28 04:00] VITALS: BP 132/90
[2018-07-28 04:19] LABS: BASOPHILS 0.1 % (0-2); EOSINOPHILS 0 % (0-7); HEMATOCRIT 43.4 % (36.0-48.0); HEMOGLOBIN 14.2 g/dL (12-16); IMMATURE GRANULOCYTES 0.5 % (0-5); MCH 30.2 pg (26.0-34.0); MCHC 32.7 g/dL (31.0-37.0); MCV 92.3 fL (80.0-100.0); MEAN PLATELET VOLUME 10.8 fL (7.4-10.4); NEUTROPHILS 88.4 % (40-80); PLATELET COUNT 246 10x3/uL (130-400); RDW 14.4 % (11.5-14.5)
[2018-07-28 04:25] LABS: WBC 17.8 10x3/uL (4.8-10.8)
[2018-07-28 04:26] LABS: ANION GAP 15.7 mmol/L (8-16); CALCIUM 9.6 mg/dL (8.5-10.1); CREATININE - SERUM 1.2 mg/dL (0.6-1.3); POTASSIUM - SERUM 3.7 mmol/L (3.5-5.1)
[2018-07-28] MEDS ORDERED: MEDROL DOSE PACK4 MG PO (07:37)
[2018-07-28] MEDS ORDERED: DOXYCYCLINE HY100 M2 PO (07:38)
[2018-07-28 08:08] VITALS: BP 145/76
[2018-07-28 10:55] VITALS: BP 122/67
[2018-07-28 15:58] VITALS: BP 126/67
[2018-07-28 21:05] VITALS: BP 136/77
[2018-07-29 01:11] VITALS: BP 102/55
[2018-07-29 05:45] VITALS: BP 191/85
[2018-07-29 08:17] VITALS: BP 160/88
[2018-07-29 12:50] VITALS: BP 115/76
[2018-07-29 15:31] VITALS: BP 160/76
[2018-07-29 20:48] VITALS: BP 134/88
[2018-07-30 01:31] VITALS: BP 147/75
[2018-07-30 05:51] LABS: BASOPHILS 0.1 % (0-2); EOSINOPHILS 0 % (0-7); HEMATOCRIT 44.5 % (36.0-48.0); HEMOGLOBIN 15.1 g/dL (12-16); IMMATURE GRANULOCYTES 1.7 % (0-5); LYMPHOCYTES 12.7 % (15-50); MCH 30.6 pg (26.0-34.0); MCHC 33.9 g/dL (31.0-37.0); MCV 90.3 fL (80.0-100.0); MEAN PLATELET VOLUME 10.8 fL (7.4-10.4); MONOCYTES 8.1 % (2-11); NEUTROPHILS 77.4 % (40-80); PLATELET COUNT 255 10x3/uL (130-400); RBC 4.93 10x6/uL (4.00-5.40); RDW 14.1 % (11.5-14.5); WBC 13.2 10x3/uL (4.8-10.8)
[2018-07-30 06:05] VITALS: BP 141/78
[2018-07-30 06:33] LABS: ANION GAP 15.2 mmol/L (8-16); CALCIUM 9.5 mg/dL (8.5-10.1); CARBON DIOXIDE 27.4 mmol/L (21.0-32.0); CREATININE - SERUM 1.1 mg/dL (0.6-1.3); POTASSIUM - SERUM 3.6 mmol/L (3.5-5.1)
[2018-07-30 08:42] VITALS: BP 133/60
[2018-07-30 11:48] VITALS: BP 141/78
== END 2018-07-30 17:44 | disposition home or self-care (01) | DRG 202 ==
LOC: D.ER 06:53 → D.M2 07:57 → D.EDHOLD 07:57 → D.M2 08:52
PROVIDERS: Family Medicine
DX: J40 Bronchitis, not specified as acute or chronic (principal); J44.1 Chronic obstructive pulmonary disease with (acute) exacerbation; F31.30 Bipolar disorder, current episode depressed, mild or moderate severity, unspecified; J44.0 Chronic obstructive pulmonary disease with (acute) lower respiratory infection; E11.9 Type 2 diabetes mellitus without complications; I48.2 Chronic atrial fibrillation; F41.9 Anxiety disorder, unspecified; K21.9 Gastro-esophageal reflux disease without esophagitis; F17.200 Nicotine dependence, unspecified, uncomplicated; F12.90 Cannabis use, unspecified, uncomplicated

== ENCOUNTER 2018-10-05 04:41 | Emergency (ER) | payer MEDICAID ==
[~2018-10-05] VITALS: Ht 165.1 cm; Wt 95.5 kg
[~2018-10-05 04:41] MED LIST changes: +DOXYCYCLINE HY100 M2 PO; +LISINOPRIL-HCTZ 20-2 PO; +MEDROL DOSE PACK4 MG PO
[2018-10-05 04:52] VITALS: Ht 165.1 cm; Wt 95.5 kg
[2018-10-05] MEDS ORDERED: NORCO 5/325 TAB1 TAB PO (05:05)
[2018-10-05] MEDS ORDERED: FLAGYL500 MG PO (05:05)
[2018-10-05 05:26] VITALS: BP 136/92
== END 2018-10-05 05:28 | disposition home or self-care (01) ==
LOC: D.ER 04:41
DX: H61.21 Impacted cerumen, right ear (principal); M54.5 Low back pain; N76.0 Acute vaginitis; I10 Essential (primary) hypertension; J44.9 Chronic obstructive pulmonary disease, unspecified

== ENCOUNTER 2018-11-23 01:34 | Emergency (ER) | payer MEDICAID ==
[~2018-11-23] VITALS: Ht 165.1 cm; Wt 81.8 kg
[~2018-11-23 01:34] MED LIST changes: +FLAGYL500 MG PO; +NORCO 5/325 TAB1 TAB PO
[2018-11-23 01:42] VITALS: Ht 165.1 cm; Wt 81.8 kg
[2018-11-23] MEDS ORDERED: AMOXICILLIN500 M1 PO (02:07)
[2018-11-23 02:46] VITALS: BP 139/96
== END 2018-11-23 02:46 | disposition home or self-care (01) ==
LOC: D.ER 01:34
DX: J06.9 Acute upper respiratory infection, unspecified (principal); S46.911A Strain of unspecified muscle, fascia and tendon at shoulder and upper arm level, right arm, initial encounter; W18.30XA Fall on same level, unspecified, initial encounter; Y93.89 Activity, other specified; Y92.019 Unspecified place in single-family (private) house as the place of occurrence of the external cause; R05 Cough

== ENCOUNTER 2019-01-27 21:40 | Emergency (ER) | payer MEDICAID ==
[~2019-01-27] VITALS: Ht 165.1 cm; Wt 85.3 kg
[~2019-01-27 21:40] MED LIST changes: +AMOXICILLIN500 M1 PO
[2019-01-27 21:45] VITALS: Ht 165.1 cm; Wt 85.3 kg
[2019-01-27] MEDS ORDERED: CLEOCIN HCL300 MG PO (22:03)
[2019-01-27 22:39] VITALS: BP 130/85
== END 2019-01-27 22:40 | disposition home or self-care (01) ==
LOC: D.ER 21:40
DX: M25.511 Pain in right shoulder (principal)

== ENCOUNTER → 2019-04-05 10:03 | Outpatient (CLI) | payer MEDICAID ==
[~2019-04-05 10:03] MED LIST changes: +CLEOCIN HCL300 MG PO; +COMBIVENT RESPIM4 GM INH; +PROVENTIL/2.5 MG/3 M INH
== END | disposition home or self-care (01) ==
LOC: D.MRI 03-23 09:00
PROVIDERS: ATTEND Family Medicine
DX: R94.02 Abnormal brain scan (principal)

== ENCOUNTER 2019-04-06 09:52 | Emergency (ER) | payer MEDICAID ==
[~2019-04-06] VITALS: Ht 165.1 cm; Wt 81.8 kg
[~2019-04-06 09:52] MED LIST changes: -COMBIVENT RESPIM4 GM INH; -PROVENTIL/2.5 MG/3 M INH
[2019-04-06 09:55] VITALS: Ht 165.1 cm; Wt 81.8 kg
--- NOTE | 2019-04-06 10:32 | NUR ---
DR. FORMAN NOTIFIED AND REVIEWED PT'S BEHAVIOR AND ASSESSMENT RESULTS. PT IS A LOW RISK PER DR. FORMAN. DR. FORMAN STATED TO GIVE RESOURCES TO PT AT THE TIME OF DISCHARGE. NO FURTHER ORDERS AT THIS TIME. RESOURCES REVIEWED WITH PT AND SHE VERBALZIED UNDERSTANDING.
[2019-04-06 10:42] LABS: BASOPHILS 0.4 % (0-2); EOSINOPHILS 2.6 % (0-7); HEMATOCRIT 43.7 % (36.0-48.0); IMMATURE GRANULOCYTES 0.2 % (0-5); LYMPHOCYTES 49.4 % (15-50); MCH 30.1 pg (26.0-34.0); MCHC 34.3 g/dL (31.0-37.0); MCV 87.6 fL (80.0-100.0); MEAN PLATELET VOLUME 10.4 fL (7.4-10.4); MONOCYTES 7.2 % (2-11); NEUTROPHILS 40.2 % (40-80); PLATELET COUNT 200 10x3/uL (130-400); RBC 4.99 10x6/uL (4.00-5.40); RDW 13.3 % (11.5-14.5); WBC 5.4 10x3/uL (4.8-10.8)
[2019-04-06 11:01] LABS: ALBUMIN 3.2 g/dL (3.4-5.0); ALKALINE PHOSPHATASE 119 U/L (46-116); ALT (SGPT) 31 U/L (10-68); BILIRUBIN - TOTAL 0.39 mg/dL (0.2-1.3); CALC OSMOLALITY 276 mosm/kg (275-300); CALCIUM 8.9 mg/dL (8.5-10.1); CARBON DIOXIDE 27.4 mmol/L (21.0-32.0); CHLORIDE - SERUM 105 mmol/L (98-107); CREATININE - SERUM 0.8 mg/dL (0.6-1.3); PROTEIN - SERUM 7.2 g/dL (6.4-8.2); SODIUM 140 mmol/L (136-145); UREA NITROGEN 8 mg/dL (7-18); eGFR NON AFRICAN AMERICAN 79 mL/min (90-120)
[2019-04-06 11:02] LABS: GLUCOSE 92 mg/dL (74-106)
[2019-04-06 11:03] LABS: APTT 32.7 SECONDS (22.8-39.4); PROTIME 12.7 SECONDS (11.6-15.0)
[2019-04-06 11:22] LABS: CKMB 0.6 U/L (0.0-3.6); CREATINE KINASE 64 UL (21-215); PRO BNP 152 pg/mL (0-125)
[2019-04-06 11:25] LABS: TROPONIN-I < 0.017 ng/mL (0.000-0.060)
[2019-04-06] MEDS ORDERED: COMBIVENT RESPIM4 GM INH (12:02)
[2019-04-06] MEDS ORDERED: PROVENTIL/2.5 MG/3 M INH (12:02)
[2019-04-06 12:39] VITALS: BP 150/82
== END 2019-04-06 12:41 | disposition home or self-care (01) ==
LOC: D.ER 09:52
PROVIDERS: Family Medicine
DX: J44.9 Chronic obstructive pulmonary disease, unspecified (principal)

== ENCOUNTER 2019-04-17 08:43 | Emergency (ER) | payer MEDICAID ==
[~2019-04-17] VITALS: Ht 165.1 cm; Wt 81.8 kg
[~2019-04-17 08:43] MED LIST changes: +COMBIVENT RESPIM4 GM INH; +PROVENTIL/2.5 MG/3 M INH
[2019-04-17 08:51] VITALS: Ht 165.1 cm; Wt 81.8 kg
[2019-04-17 10:04] VITALS: BP 148/95
== END 2019-04-17 10:05 | disposition home or self-care (01) ==
LOC: D.ER 08:43
DX: H57.11 Ocular pain, right eye (principal); J44.9 Chronic obstructive pulmonary disease, unspecified

== ENCOUNTER 2019-09-23 07:51 | Emergency (ER) | payer MEDICAID ==
[2019-09-23 07:58] VITALS: Ht 165.1 cm
[2019-09-23 08:26] LABS: BASOPHILS 0.2 % (0-2); EOSINOPHILS 3.8 % (0-7); HEMATOCRIT 49.6 % (36.0-48.0); HEMOGLOBIN 16.3 g/dL (12-16); IMMATURE GRANULOCYTES 0.2 % (0-5); LYMPHOCYTES 29.9 % (15-50); MCH 30.4 pg (26.0-34.0); MCHC 32.9 g/dL (31.0-37.0); MCV 92.4 fL (80.0-100.0); MEAN PLATELET VOLUME 10.6 fL (7.4-10.4); MONOCYTES 5.5 % (2-11); NEUTROPHILS 60.4 % (40-80); PLATELET COUNT 229 10x3/uL (130-400); RBC 5.37 10x6/uL (4.00-5.40); RDW 13.4 % (11.5-14.5); WBC 8.9 10x3/uL (4.8-10.8)
[2019-09-23 08:35] LABS: ANION GAP 15.3 mmol/L (8-16); CALCIUM 8.9 mg/dL (8.5-10.1); CARBON DIOXIDE 21.5 mmol/L (21.0-32.0); CREATININE - SERUM 0.9 mg/dL (0.6-1.3); POTASSIUM - SERUM 3.8 mmol/L (3.5-5.1)
[2019-09-23 08:41] LABS: ALBUMIN 3.3 g/dL (3.4-5.0); BILIRUBIN - TOTAL 0.23 mg/dL (0.2-1.3); PROTEIN - SERUM 7.5 g/dL (6.4-8.2)
[2019-09-23 09:32] LABS: APPEARANCE CLEAR (CLEAR); BILIRUBIN NEGATIVE (NEGATIVE); COLOR YELLOW (YELLOW); GLUCOSE NEGATIVE (NEGATIVE); KETONE NEGATIVE (NEGATIVE); NITRITE NEGATIVE (NEGATIVE); PROTEIN NEGATIVE (NEGATIVE); UROBILINOGEN NORMAL (NORMAL)
[2019-09-23] MEDS ORDERED: PROTONIX40 MG PO (09:49)
[2019-09-23] MEDS ORDERED: CARAFATE1 G PO (09:49)
[2019-09-23 09:52] VITALS: BP 126/72
== END 2019-09-23 09:53 | disposition home or self-care (01) ==
LOC: D.ER 07:51
PROVIDERS: Family Medicine
DX: K29.70 Gastritis, unspecified, without bleeding (principal); R19.7 Diarrhea, unspecified; I10 Essential (primary) hypertension; I25.2 Old myocardial infarction; J44.9 Chronic obstructive pulmonary disease, unspecified; K21.9 Gastro-esophageal reflux disease without esophagitis; Z72.0 Tobacco use

== ENCOUNTER 2019-10-09 04:41 | Emergency (ER) | payer MEDICAID ==
[~2019-10-09] VITALS: Ht 165.1 cm; Wt 77.1 kg
[~2019-10-09 04:41] MED LIST changes: +CARAFATE1 G PO; +PROTONIX40 MG PO
[2019-10-09 04:44] VITALS: Ht 165.1 cm; Wt 77.1 kg
[2019-10-09] MEDS ORDERED: PHENERGAN25 MG RC (04:45)
[2019-10-09] MEDS ORDERED: CARAFATE1 G PO (04:45)
[2019-10-09] MEDS ORDERED: ZOLOFT100 MG PO (04:46)
[2019-10-09] MEDS ORDERED: TYLENOL W/CODEI1 TAB PO (05:10)
[2019-10-09 05:38] VITALS: BP 132/96
== END 2019-10-09 05:35 | disposition home or self-care (01) ==
LOC: D.ER 04:41
DX: G89.29 Other chronic pain (principal); M25.512 Pain in left shoulder; J44.9 Chronic obstructive pulmonary disease, unspecified; I10 Essential (primary) hypertension; Z72.0 Tobacco use; I25.2 Old myocardial infarction

== ENCOUNTER 2019-10-18 01:55 | Emergency (ER) | payer MEDICAID ==
[~2019-10-18] VITALS: Ht 165.1 cm; Wt 81.8 kg
[~2019-10-18 01:55] MED LIST changes: +PHENERGAN25 MG RC; +ZOLOFT100 MG PO
[2019-10-18 01:57] VITALS: Ht 165.1 cm; Wt 81.8 kg
[2019-10-18 02:15] LABS: BASOPHILS 0.4 % (0-2); EOSINOPHILS 4.7 % (0-7); HEMATOCRIT 45.6 % (36.0-48.0); HEMOGLOBIN 15.2 g/dL (12-16); IMMATURE GRANULOCYTES 0.1 % (0-5); LYMPHOCYTES 52.4 % (15-50); MCH 30.5 pg (26.0-34.0); MCHC 33.3 g/dL (31.0-37.0); MCV 91.6 fL (80.0-100.0); MEAN PLATELET VOLUME 10.2 fL (7.4-10.4); NEUTROPHILS 35.4 % (40-80); PLATELET COUNT 263 10x3/uL (130-400); RBC 4.98 10x6/uL (4.00-5.40); RDW 13.4 % (11.5-14.5); WBC 7.4 10x3/uL (4.8-10.8)
[2019-10-18 02:23] LABS: CALC OSMOLALITY 284 mosm/kg (275-300); CALCIUM 8.9 mg/dL (8.5-10.1); CHLORIDE - SERUM 106 mmol/L (98-107); CREATININE - SERUM 0.8 mg/dL (0.6-1.3); GLUCOSE 111 mg/dL (74-106); SODIUM 143 mmol/L (136-145); UREA NITROGEN 11 mg/dL (7-18); eGFR NON AFRICAN AMERICAN 79 mL/min (90-120)
[2019-10-18 02:25] LABS: APTT 30.9 SECONDS (22.8-39.4); INR 0.87 (0.85-1.17); PROTIME 11.8 SECONDS (11.6-15.0)
[2019-10-18] MEDS ORDERED: ALBUTEROL SULF8.5 GM INH (02:35)
[2019-10-18 02:51] LABS: ALBUMIN 3.1 g/dL (3.4-5.0); ALKALINE PHOSPHATASE 116 U/L (46-116); ALT (SGPT) 30 U/L (10-68); CKMB 1.2 U/L (0.0-3.6); CREATINE KINASE 62 UL (21-215); PRO BNP 180 pg/mL (0-125); PROTEIN - SERUM 7.2 g/dL (6.4-8.2); TROPONIN-I < 0.017 ng/mL (0.000-0.060)
[2019-10-18 02:55] VITALS: BP 134/82
== END 2019-10-18 02:55 | disposition home or self-care (01) ==
LOC: D.ER 01:55
PROVIDERS: Emergency Medicine
DX: R06.00 Dyspnea, unspecified (principal); J44.9 Chronic obstructive pulmonary disease, unspecified; Z72.0 Tobacco use; I25.2 Old myocardial infarction

== ENCOUNTER 2019-12-15 03:03 | Emergency (ER) | payer MEDICAID ==
[~2019-12-15] VITALS: Ht 165.1 cm; Wt 83.6 kg
[~2019-12-15 03:03] MED LIST changes: +ALBUTEROL SULF8.5 GM INH; +STERAPRED DS 1010 MG PO
[2019-12-15 03:07] VITALS: Ht 165.1 cm; Wt 83.6 kg
[2019-12-15 03:19] LABS: BASOPHILS 0.6 % (0-2); HEMATOCRIT 45.4 % (36.0-48.0); IMMATURE GRANULOCYTES 0.1 % (0-5); LYMPHOCYTES 55.9 % (15-50); MCH 30.4 pg (26.0-34.0); MCV 92.1 fL (80.0-100.0); MEAN PLATELET VOLUME 10.3 fL (7.4-10.4); MONOCYTES 7.6 % (2-11); NEUTROPHILS 32.8 % (40-80); PLATELET COUNT 231 10x3/uL (130-400); RBC 4.93 10x6/uL (4.00-5.40); RDW 13.6 % (11.5-14.5); WBC 7.1 10x3/uL (4.8-10.8)
[2019-12-15 03:26] LABS: CALC OSMOLALITY 290 mosm/kg (275-300); CALCIUM 9.4 mg/dL (8.5-10.1); CARBON DIOXIDE 29.7 mmol/L (21.0-32.0); CHLORIDE - SERUM 109 mmol/L (98-107); CREATININE - SERUM 0.8 mg/dL (0.6-1.3); GLUCOSE 103 mg/dL (74-106); INR 0.92 (0.85-1.17); POTASSIUM - SERUM 4.1 mmol/L (3.5-5.1); PROTIME 12.3 SECONDS (11.6-15.0); SODIUM 144 mmol/L (136-145); UREA NITROGEN 25 mg/dL (7-18); eGFR NON AFRICAN AMERICAN 79 mL/min (90-120)
[2019-12-15 03:27] LABS: APTT 31.1 SECONDS (22.8-39.4)
[2019-12-15 03:43] LABS: ALBUMIN 3.3 g/dL (3.4-5.0); ALKALINE PHOSPHATASE 102 U/L (30-120); ALT (SGPT) 29 U/L (10-68); BILIRUBIN - TOTAL 0.25 mg/dL (0.2-1.3); CKMB 0.8 U/L (0.0-3.6); CREATINE KINASE 93 UL (21-215); PRO BNP 71 pg/mL (0-125); PROTEIN - SERUM 7.1 g/dL (6.4-8.2)
[2019-12-15 03:44] LABS: TROPONIN-I < 0.017 ng/mL (0.000-0.060)
[2019-12-15] MEDS ORDERED: PREDNISONE20 MG PO (04:49)
[2019-12-15 04:57] VITALS: BP 120/61
== END 2019-12-15 04:57 | disposition home or self-care (01) ==
LOC: D.ER 03:03
PROVIDERS: Family Medicine
DX: J44.9 Chronic obstructive pulmonary disease, unspecified (principal); F17.219 Nicotine dependence, cigarettes, with unspecified nicotine-induced disorders; I10 Essential (primary) hypertension; I50.9 Heart failure, unspecified; I48.91 Unspecified atrial fibrillation; I25.10 Atherosclerotic heart disease of native coronary artery without angina pectoris; M25.512 Pain in left shoulder

== ENCOUNTER 2020-01-04 05:06 | Emergency (ER) | payer MEDICAID ==
[~2020-01-04] VITALS: Ht 165.1 cm; Wt 72.7 kg
[~2020-01-04 05:06] MED LIST changes: +PREDNISONE20 MG PO
[2020-01-04 05:17] VITALS: Ht 165.1 cm; Wt 72.7 kg
[2020-01-04 06:06] LABS: HEMATOCRIT 44.6 % (36.0-48.0); HEMOGLOBIN 14.6 g/dL (12-16); MCH 29.8 pg (26.0-34.0); MCHC 32.7 g/dL (31.0-37.0); MEAN PLATELET VOLUME 10.4 fL (7.4-10.4); PLATELET COUNT 220 10x3/uL (130-400); RDW 13.4 % (11.5-14.5); WBC 6.2 10x3/uL (4.8-10.8)
[2020-01-04 06:18] LABS: CALC OSMOLALITY 279 mosm/kg (275-300); CALCIUM 8.9 mg/dL (8.5-10.1); CARBON DIOXIDE 28.6 mmol/L (21.0-32.0); CHLORIDE - SERUM 106 mmol/L (98-107); CREATININE - SERUM 0.8 mg/dL (0.6-1.3); GLUCOSE 96 mg/dL (74-106); POTASSIUM - SERUM 3.8 mmol/L (3.5-5.1); SODIUM 141 mmol/L (136-145); UREA NITROGEN 11 mg/dL (7-18); eGFR NON AFRICAN AMERICAN 79 mL/min (90-120)
[2020-01-04 06:38] LABS: ALBUMIN 3.2 g/dL (3.4-5.0); ALKALINE PHOSPHATASE 109 U/L (30-120); ALT (SGPT) 30 U/L (10-68); BILIRUBIN - TOTAL 0.18 mg/dL (0.2-1.3); CKMB 0.4 U/L (0.0-3.6); CREATINE KINASE 63 UL (21-215); PRO BNP 418 pg/mL (0-125); PROTEIN - SERUM 6.9 g/dL (6.4-8.2)
[2020-01-04 06:39] LABS: TROPONIN-I < 0.017 ng/mL (0.000-0.060)
[2020-01-04 06:46] LABS: LYMPHOCYTES 56 % (15-50); MONOCYTES 2 % (2-11); NEUTROPHILS 42 % (40-80); PLATELET ESTIMATE NORMAL
[2020-01-04 07:32] VITALS: BP 164/90
== END 2020-01-04 07:35 | disposition home or self-care (01) ==
LOC: D.ER 05:06
PROVIDERS: Emergency Medicine
DX: F43.22 Adjustment disorder with anxiety (principal); J44.9 Chronic obstructive pulmonary disease, unspecified; Z72.0 Tobacco use

== ENCOUNTER 2020-03-21 05:26 | Emergency (ER) | payer MEDICAID ==
[~2020-03-21] VITALS: Ht 165.1 cm; Wt 83.9 kg
[2020-03-21 05:30] VITALS: Ht 165.1 cm; Wt 83.9 kg
[2020-03-21 05:52] LABS: BASOPHILS 0.4 % (0-2); HEMATOCRIT 43.9 % (36.0-48.0); HEMOGLOBIN 14.1 g/dL (12-16); IMMATURE GRANULOCYTES 0.1 % (0-5); LYMPHOCYTES 48.4 % (15-50); MCH 30.1 pg (26.0-34.0); MCHC 32.1 g/dL (31.0-37.0); MCV 93.8 fL (80.0-100.0); MEAN PLATELET VOLUME 10.4 fL (7.4-10.4); MONOCYTES 8.5 % (2-11); NEUTROPHILS 39.6 % (40-80); PLATELET COUNT 197 10x3/uL (130-400); RBC 4.68 10x6/uL (4.00-5.40); RDW 13.2 % (11.5-14.5)
[2020-03-21 06:09] LABS: CALC OSMOLALITY 281 mosm/kg (275-300); CALCIUM 8.4 mg/dL (8.5-10.1); CARBON DIOXIDE 31.7 mmol/L (21.0-32.0); CHLORIDE - SERUM 106 mmol/L (98-107); GLUCOSE 100 mg/dL (74-106); SODIUM 140 mmol/L (136-145); UREA NITROGEN 21 mg/dL (7-18); eGFR NON AFRICAN AMERICAN 61 mL/min (90-120)
[2020-03-21 06:19] LABS: BILIRUBIN NEGATIVE (NEGATIVE); GLUCOSE NEGATIVE (NEGATIVE); KETONE NEGATIVE (NEGATIVE); NITRITE NEGATIVE (NEGATIVE); UROBILINOGEN NORMAL (NORMAL)
[2020-03-21 06:26] LABS: ALBUMIN 3.1 g/dL (3.4-5.0); ALKALINE PHOSPHATASE 95 U/L (30-120); ALT (SGPT) 40 U/L (10-68); BILIRUBIN - TOTAL 0.22 mg/dL (0.2-1.3); CKMB 1.8 U/L (0.0-3.6); CREATINE KINASE 140 UL (21-215); PROTEIN - SERUM 6.6 g/dL (6.4-8.2)
[2020-03-21 06:27] LABS: TROPONIN-I < 0.017 ng/mL (0.000-0.060)
[2020-03-21] MEDS ORDERED: STERAPRED DS 1010 MG PO (06:43)
[2020-03-21] MEDS ORDERED: IPRAT-ALBUT 0.5-3 ML UPD (06:43)
[2020-03-21] MEDS ORDERED: ALBUTEROL2.5 MG/3 M INH (06:43)
[2020-03-21 07:02] VITALS: BP 139/81
== END 2020-03-21 07:03 | disposition home or self-care (01) ==
LOC: D.ER 05:26
PROVIDERS: Family Medicine
DX: J44.1 Chronic obstructive pulmonary disease with (acute) exacerbation (principal); Z72.0 Tobacco use; R06.02 Shortness of breath; R05 Cough

== ENCOUNTER 2020-03-23 04:00 | Emergency (ER) | payer MEDICAID ==
[~2020-03-23] VITALS: Ht 165.1 cm; Wt 86.4 kg
[~2020-03-23 04:00] MED LIST changes: +ALBUTEROL2.5 MG/3 M INH; +IPRAT-ALBUT 0.5-3 ML UPD
[2020-03-23 04:05] VITALS: Ht 165.1 cm; Wt 86.4 kg
[2020-03-23 04:40] LABS: BASOPHILS 0.6 % (0-2); EOSINOPHILS 2.4 % (0-7); HEMATOCRIT 44.1 % (36.0-48.0); HEMOGLOBIN 14.3 g/dL (12-16); IMMATURE GRANULOCYTES 0.2 % (0-5); LYMPHOCYTES 52.3 % (15-50); MCH 31.1 pg (26.0-34.0); MCHC 32.4 g/dL (31.0-37.0); MEAN PLATELET VOLUME 10.7 fL (7.4-10.4); MONOCYTES 6.2 % (2-11); NEUTROPHILS 38.3 % (40-80); PLATELET COUNT 197 10x3/uL (130-400); RDW 13.7 % (11.5-14.5)
[2020-03-23 04:41] LABS: MCV 95.9 fL (80.0-100.0); WBC 8.9 10x3/uL (4.8-10.8)
[2020-03-23 04:58] LABS: CALC OSMOLALITY 283 mosm/kg (275-300); CALCIUM 8.4 mg/dL (8.5-10.1); CARBON DIOXIDE 30.6 mmol/L (21.0-32.0); CHLORIDE - SERUM 105 mmol/L (98-107); CREATININE - SERUM 1.1 mg/dL (0.6-1.3); GLUCOSE 102 mg/dL (74-106); SODIUM 140 mmol/L (136-145); eGFR NON AFRICAN AMERICAN 55 mL/min (90-120)
[2020-03-23 05:02] LABS: UREA NITROGEN 27 mg/dL (7-18)
[2020-03-23 05:05] LABS: APTT 29.2 SECONDS (22.8-39.4); INR 0.88 (0.85-1.17); PROTIME 11.9 SECONDS (11.6-15.0)
[2020-03-23 05:07] LABS: D-DIMER-QUANTITATIVE < 0.27 ug/mLFEU (0.20-0.54)
[2020-03-23 05:14] LABS: ALBUMIN 3.1 g/dL (3.4-5.0); ALKALINE PHOSPHATASE 94 U/L (30-120); BILIRUBIN - TOTAL 0.13 mg/dL (0.2-1.3); CKMB 1.5 U/L (0.0-3.6); CREATINE KINASE 103 UL (21-215); PRO BNP 429 pg/mL (0-125); PROTEIN - SERUM 6.6 g/dL (6.4-8.2); TROPONIN-I < 0.017 ng/mL (0.000-0.060)
[2020-03-23 05:19] LABS: ALT (SGPT) 109 U/L (10-68)
[2020-03-23 05:26] LABS: BILIRUBIN NEGATIVE (NEGATIVE); GLUCOSE NEGATIVE (NEGATIVE); KETONE NEGATIVE (NEGATIVE); NITRITE NEGATIVE (NEGATIVE); UROBILINOGEN NORMAL (NORMAL)
[2020-03-23 05:35] LABS: UDS - AMPHET NEGATIVE QUAL (NEGATIVE); UDS - BARB NEGATIVE QUAL (NEGATIVE); UDS - BENZO NEGATIVE QUAL (NEGATIVE); UDS - COCAINE NEGATIVE QUAL (NEGATIVE); UDS - OPIATE NEGATIVE QUAL (NEGATIVE); UDS - PCP NEGATIVE QUAL (NEGATIVE); UDS - THC POSITIVE QUAL (NEGATIVE)
[2020-03-23] MEDS ORDERED: LEVAQUIN750 MG PO (05:53)
[2020-03-23 07:08] VITALS: BP 132/70
== END 2020-03-23 07:09 | disposition home or self-care (01) ==
LOC: D.ER 04:00
PROVIDERS: Emergency Medicine
DX: J44.9 Chronic obstructive pulmonary disease, unspecified (principal); Z72.0 Tobacco use; R06.02 Shortness of breath; Z53.29 Procedure and treatment not carried out because of patient's decision for other reasons

== ENCOUNTER 2020-06-13 05:36 | Emergency (ER) | payer MEDICAID ==
[~2020-06-13] VITALS: Ht 165.1 cm; Wt 81.8 kg
[2020-06-13 05:40] VITALS: Ht 165.1 cm; Wt 81.8 kg
[2020-06-13 06:15] LABS: HEMATOCRIT 42.4 % (36.0-48.0); HEMOGLOBIN 14.3 g/dL (12-16); MCH 30.2 pg (26.0-34.0); MCHC 33.7 g/dL (31.0-37.0); MCV 89.6 fL (80.0-100.0); MEAN PLATELET VOLUME 10.4 fL (7.4-10.4); NEUTROPHILS 40.9 % (40-80); PLATELET COUNT 204 10x3/uL (130-400); RBC 4.73 10x6/uL (4.00-5.40); RDW 12.5 % (11.5-14.5); WBC 6.8 10x3/uL (4.8-10.8)
[2020-06-13 06:20] LABS: CALC OSMOLALITY 280 mosm/kg (275-300); CALCIUM 8.8 mg/dL (8.5-10.1); CARBON DIOXIDE 27.6 mmol/L (21.0-32.0); CHLORIDE - SERUM 103 mmol/L (98-107); GLUCOSE 119 mg/dL (74-106); POTASSIUM - SERUM 3.8 mmol/L (3.5-5.1); SODIUM 139 mmol/L (136-145); UREA NITROGEN 17 mg/dL (7-18); eGFR NON AFRICAN AMERICAN 61 mL/min (90-120)
[2020-06-13 06:24] LABS: APTT 31.2 SECONDS (22.8-39.4); INR 0.87 (0.85-1.17); PROTIME 11.8 SECONDS (11.6-15.0)
[2020-06-13 06:37] LABS: ALBUMIN 3.3 g/dL (3.4-5.0); ALKALINE PHOSPHATASE 119 U/L (30-120); BILIRUBIN - TOTAL 0.09 mg/dL (0.2-1.3); CKMB 1.2 U/L (0.0-3.6); CREATINE KINASE 98 UL (21-215); PRO BNP 271 pg/mL (0-125); PROTEIN - SERUM 7.1 g/dL (6.4-8.2); TROPONIN-I < 0.017 ng/mL (0.000-0.060)
[2020-06-13] MEDS ORDERED: PREDNISONE20 MG PO (06:43)
[2020-06-13 06:53] LABS: ALT (SGPT) 24 U/L (10-68)
[2020-06-13] MEDS ORDERED: PROMETHAZINE W473 ML PO (07:11)
[2020-06-13] MEDS ORDERED: LEVOFLOXACIN500 MG PO (07:11)
[2020-06-13 07:32] VITALS: BP 125/75
== END 2020-06-13 07:32 | disposition home or self-care (01) ==
LOC: D.ER 05:36
PROVIDERS: Family Medicine
DX: J44.1 Chronic obstructive pulmonary disease with (acute) exacerbation (principal); J20.9 Acute bronchitis, unspecified; Z72.0 Tobacco use

== ENCOUNTER → 2021-03-11 12:26 | Outpatient (CLI) | payer MEDICAID ==
[~2021-03-11 12:26] MED LIST changes: +DECADRON4 MG PO; +LEVOFLOXACIN500 MG PO; +PROMETHAZINE W473 ML PO; +ZPAK PO
== END | disposition home or self-care (01) ==
LOC: D.MRI 03-03 11:00
PROVIDERS: ATTEND Nurse Practitioner Family
DX: S83.206A Unspecified tear of unspecified meniscus, current injury, right knee, initial encounter (principal)

== ENCOUNTER 2021-03-15 18:56 | Emergency (ER) | payer MEDICAID ==
[~2021-03-15] VITALS: Ht 165.1 cm; Wt 95.5 kg
[2021-03-15 19:02] VITALS: Ht 165.1 cm; Wt 95.5 kg
[2021-03-15] MEDS ORDERED: PROVENTIL2 MG PO (19:06)
[2021-03-15 19:26] LABS: BASOPHILS 1.2 % (0-2); EOSINOPHILS 3.9 % (0-7); HEMATOCRIT 41.1 % (36.0-48.0); HEMOGLOBIN 13.8 g/dL (12-16); LYMPHOCYTES 42.3 % (15-50); MCH 29.8 pg (26.0-34.0); MCHC 33.7 g/dL (31.0-37.0); MCV 88.5 fL (80.0-100.0); MEAN PLATELET VOLUME 8.2 fL (7.4-10.4); NEUTROPHILS 43.6 % (40-80); PLATELET COUNT 204 10x3/uL (130-400); RBC 4.65 10x6/uL (4.00-5.40); RDW 13.4 % (11.5-14.5); WBC 6.5 10x3/uL (4.8-10.8)
[2021-03-15 19:30] LABS: INR 1.03 (0.85-1.17); PROTIME 12.4 SECONDS (11.6-15.0)
[2021-03-15 19:31] LABS: APTT 29.9 SECONDS (22.8-39.4); CALC OSMOLALITY 286 mosm/kg (275-300); CALCIUM 8.5 mg/dL (8.5-10.1); CHLORIDE - SERUM 107 mmol/L (98-107); GLUCOSE 95 mg/dL (74-106); POTASSIUM - SERUM 3.8 mmol/L (3.5-5.1); SODIUM 143 mmol/L (136-145); UREA NITROGEN 18 mg/dL (7-18); eGFR NON AFRICAN AMERICAN 61 mL/min (90-120)
[2021-03-15 19:46] LABS: ALBUMIN 3.2 g/dL (3.4-5.0); ALKALINE PHOSPHATASE 92 U/L (30-120); ALT (SGPT) 30 U/L (10-68); BILIRUBIN - TOTAL 0.19 mg/dL (0.2-1.3); CKMB 1.6 U/L (0.0-3.6); CREATINE KINASE 133 UL (21-215); PRO BNP 304 pg/mL (0-125); PROTEIN - SERUM 6.9 g/dL (6.4-8.2); TROPONIN-I < 0.017 ng/mL (0.000-0.060)
[2021-03-15 19:53] LABS: BILIRUBIN NEGATIVE (NEGATIVE); KETONE NEGATIVE (NEGATIVE); NITRITE NEGATIVE (NEGATIVE); UROBILINOGEN NORMAL mg/dL (< 2)
[2021-03-15] MEDS ORDERED: MEDROL DOSE PACK4 MG PO (19:56)
[2021-03-15] MEDS ORDERED: GUAIFEN-CODEINE10 ML PO (19:56)
[2021-03-15] MEDS ORDERED: LEVOFLOXACIN500 MG PO (19:56)
[2021-03-15 19:58] LABS: SQUAMOUS EPITHELIAL 0-5 HPF (0-4)
[2021-03-15 19:59] LABS: BACTERIA MODERATE HPF (NONE SEEN)
[2021-03-15 20:03] LABS: UDS - AMPHET NEGATIVE QUAL (NEGATIVE); UDS - BARB NEGATIVE QUAL (NEGATIVE); UDS - BENZO NEGATIVE QUAL (NEGATIVE); UDS - COCAINE NEGATIVE QUAL (NEGATIVE); UDS - OPIATE NEGATIVE QUAL (NEGATIVE); UDS - PCP NEGATIVE QUAL (NEGATIVE); UDS - THC POSITIVE QUAL (NEGATIVE)
[2021-03-15] MEDS ORDERED: PHENERGAN25 M1 PO (20:23)
[2021-03-15 21:06] VITALS: BP 127/76
== END 2021-03-15 22:45 | disposition home or self-care (01) ==
LOC: D.ER 18:56
PROVIDERS: Family Medicine
DX: J20.9 Acute bronchitis, unspecified (principal); J44.9 Chronic obstructive pulmonary disease, unspecified; I50.9 Heart failure, unspecified; I11.0 Hypertensive heart disease with heart failure; K21.9 Gastro-esophageal reflux disease without esophagitis; Z72.0 Tobacco use